=== PATIENT | female | born 1945 | race Caucasian/White ===

== ENCOUNTER → 2017-12-23 10:33 | Outpatient (CLI) | payer MEDICARE, SELFPAY ==
--- NOTE | 2017-12-23 10:55 | XR_ITS ---
XR chest 2V Ordering Physician: Amaya Mcdaniels Patient Age: 72 years: Female HISTORY: ITS.REASON: UPPER BACK PAIN TECHNIQUE: PA and lateral chest COMPARISON :None FINDINGS Lungs well expanded and clear with nothing definitely acute. No previous studies for comparison Heart normal size & mediastinal structures satisfactory.. Chest wall unremarkable. . Aorta is normal contour not appreciably dilated. No lung lesions evident posterior ribs intact T-spine intact. Mild/moderate diffuse anterior hyperostosis involving the mid and lower T-spine study multiple levels. Of this appearance may reflect senile ankylosis or more likely reflection of suggestive developing DISH/ Forestier s disease is with this a flowing ossification anterior longitudinal ligament Of spine. Mild dextrocurvature T-spine also noted. No compression fractures evident at T-spine. Left kitty is upper normal prominence most likely due to a slightly generous pulmonary artery shadow as it turns posteriorly. Any prior films be helpful to confirm stability IMPRESSION: ... ... Lungs clear. Nothing definite acute. Left kitty upper normal prominence, most likely reflecting slightly generous left pulmonary artery. (Any prior films available would be helpful to confirm stability.. If not consider follow-up chest film in 3-4 months to confirm stable) . Anterior hyperostosis throughout the mid and lower [id number] other senile ankylosis or more likely developing hyperostosis/DISH .. Mild gradual dextrocurvature T-spine also noted. No compression fractures T-spine
== END ==
PROVIDERS: PCP Family Medicine; Visit Provider Nurse Practitioner Family
DX: M54.9 Dorsalgia, unspecified (principal)
CPT/HCPCS: 71046; 93005

== ENCOUNTER → 2018-06-24 14:27 | Outpatient (CLI) | payer MEDICARE, OTHER, SELFPAY ==
--- NOTE | 2018-06-24 14:35 | XR_ITS ---
XR chest 2V HISTORY: ITS.REASON: COUGH ORDERING PHYSICIAN: Amaya Mcdaniels PATIENT AGE: 72 years COMPARISON: PA and lateral chest 12/23/2017 FINDINGS: The cardiomediastinal silhouette and pulmonary vascularity are within normal limits. The lungs are clear without infiltrates, suspicious nodules, or pleural effusions. No acute bony abnormalities. There are mild multilevel degenerative changes of the thoracic spine. IMPRESSION: Negative chest, no acute finding
== END ==
PROVIDERS: PCP Family Medicine; Visit Provider Nurse Practitioner Family
DX: R05 Cough (principal)
CPT/HCPCS: 71046

== ENCOUNTER → 2018-08-15 15:00 | Outpatient (CLI) | payer MEDICARE, OTHER, SELFPAY ==
--- NOTE | 2018-08-15 15:11 | XR_ITS ---
EXAM: XR lumbar spine min 4V HISTORY: Low back pain after a fall ITS.REASON: LOW LEFT BACK PAIN WITH SCIATICA ORDERING PHYSICIAN: RIO Kitchen PATIENT AGE: 72 years COMPARISON: None FINDINGS: Normal alignment. All lumbar vertebrae appear intact. There is prominent anterior ossific spurring at the T10-11 level with bony fusion of the osteophytes anteriorly No fracture or dislocation. No lytic or blastic change. There is minor multilevel anterior ossific spurring at levels L2-3, and L3-4. . There are mild hypertrophic facet changes at the L4-5 and L5-S1 levels. There is no pars defect. The SI joints are normal. IMPRESSION: Mild degenerative changes lower thoracic and lower lumbar spine no acute bony pathology seen.
== END ==
PROVIDERS: PCP Family Medicine; Visit Provider Physician Assistant
DX: M54.42 Lumbago with sciatica, left side (principal)
CPT/HCPCS: 72110

== ENCOUNTER 2018-10-30 09:00 | Outpatient (RCR) | payer MEDICARE, OTHER, SELFPAY ==
--- NOTE | 2018-08-20 16:24 | HMH.PTOPEV ---
PT Outpatient Evaluation Rehab PT Outpatient Evaluation Start: 08/20/18 15:44 Freq: Status: Active Protocol: Document 08/20/18 15:45 MADYSON (Rec: 08/20/18 16:24 MADYSON [id number]) Electronically Signed By Everett Vallecillo, PT 08/20/18 15:45 Outpatient Therapy Subjective History Subjective History Patient is a 72 year old female presenting to outpatient PT with reports of L hip pain that radiates to her low back, down the L lateral thigh and wraps around the lateral tibial plateau. Symptoms are of insidious onset starting approximately 3 weeks ago and have progressively gotten worse. Most recent lumbar spine diagnostics mild DDD and osteophytes at L 2/3 and L 3/4 left. Comorbidities include elevated BMI and thyroid disorder. Hx of R knee pain as well. Chief Complaint Pain Gives out/Unstable Paresthesia Weakness Symptom Type Ache Dull Burning Symptoms Relieved By Rest/Positioning Heat Ice OTC Meds Prescription Meds Symptoms Aggravated By Standing Bending/Stooping Physical Activity Twisting Walking Lifting Prior Functional Limitations None Current Functional Limitations Lifting Housework Standing Squatting Recreation Activity Walking Stairs Balance Symptom Description Constant but Variable Level of pain today (0-10) 2 Pain scale - at its best (0-10) 1 Pain scale - at its worst (0-10) 7 Lumbopelvic Eval Posture Thoracic Spine Posture Standing Position Increased Kyphosis Lumbar Spine Posture Standing Position Increased Lordosis Assistive device Assistive Devices None / NA Gait Observation General Gait Pattern Ob
--- NOTE | 2018-10-14 10:58 | HMH.RHREAS ---
Rehab Reassessment Rehab OP Re-assessment Start: 10/14/18 10:49 Freq: Status: Active Protocol: Document 10/14/18 10:50 MADYSON (Rec: 10/14/18 10:58 MADYSON [id number]) Electronically Signed By Everett Vallecillo, PT 10/14/18 10:50 Rehab Re-assessment Subjective Subjective Pt reports 70% improvement. No knee or leg pain, just swelling. Objective Objective Notes AROM WNL Swelling has decreased by 10% about knee. MMT WNL Neuro WNL Assessment Progress Assessment Progressing as Expected Assessment Notes Pt has continued with HEP for ther ex. Rx has mainly consisted of sessions with CLT to address swelling in L knee . She is currently [facility] She would benefit from continuing to see CLT for 2 weeks in order to continue to address swelling. Patient goals met STG's Goals Not Met LTG's Revised Goals NA Plan Plan Continue with current POC Frequency of Therapy 1x/week Duration of therapy 2 weeks. Time and Billing Re-Eval Time 15 Re-Eval Billing Units 1 PHYSICIAN CERTIFICATION: I certify the specified therapy services for Mariola Gutierrez are required, authorized, and reviewed every 30 days.
== END 2018-10-30 09:05 | disposition home or self-care (01) ==
LOC: PT 09:00
PROVIDERS: PCP Family Medicine; Visit Provider Family Medicine
DX: M54.42 Lumbago with sciatica, left side (principal)
CPT/HCPCS: 97010; 97014; 97035; 97110; 97140; 97163; 97164; 97760; G0283

== ENCOUNTER 2019-04-16 08:00 | Outpatient (RCR) | payer MEDICARE, OTHER, SELFPAY ==
--- NOTE | 2019-03-02 09:34 | HMH.PTOPEV ---
PT Outpatient Evaluation Rehab PT Outpatient Evaluation Start: 03/02/19 09:24 Freq: Status: Active Protocol: Document 03/02/19 09:24 DUSTIN (Rec: 03/02/19 09:34 DUSTIN [id number]) Electronically Signed By Daniel Queen, PT 03/02/19 09:24 Outpatient Therapy Subjective History Subjective History Pt reports h/o chronic L sided LBP for ~4-5 months, this episode beginning ~2 weeks ago . Pt reports L sided hip/glut area pain w/intermittent episodes of radicular pain into L groin area. Pt reports recent Xrays have revealed OA in lumbar spine. Chief Complaint Pain Stiff Paresthesia Weakness Symptom Type Ache Throb Sharp Dull Numbness Tingling Symptoms Relieved By Rest/Positioning Ice Prescription Meds Symptoms Aggravated By Sitting Standing Walking Lifting Prior Functional Limitations Lifting Housework Current Functional Limitations Lifting Housework Standing Sitting Walking Symptom Description Constant but Variable Level of pain today (0-10) 1 Pain scale - at its best (0-10) 1 Pain scale - at its worst (0-10) 6 Lumbopelvic Eval Posture Thoracic Spine Posture Standing Position Neutral Lumbar Spine Posture Standing Position Neutral Assistive device Assistive Devices None / NA Gait Observation General Gait Pattern Observation Antalgic Gait Palapation tenderness right paraspinal tenderness Yes: 1/4 buttock tenderness Yes: 2/4 Lumbar/Sacral Palpation Findings Tenderness left lumbar spinal tenderness Yes: 1-2/4 paraspinal tenderness Yes: 2-3/4 buttock tenderness Yes: 3/4 Lumbar/Sacral Palpation Findings Tenderness Accessory Movement L-spine Vertebrae Accessory Movements Central P/A [place] that Elicit Symptoms L5 right left Range of Motion Lumbar Spine Active Flexion Range of 0-70 Motion (degrees)
== END 2019-04-19 08:05 | disposition home or self-care (01) ==
LOC: PT 08:00
PROVIDERS: Visit Provider Family Medicine
DX: M54.42 Lumbago with sciatica, left side (principal)
CPT/HCPCS: 97010; 97014; 97035; 97110; 97163; G0283

== ENCOUNTER → 2019-10-21 09:56 | Outpatient (CLI) | payer MEDICARE, OTHER, SELFPAY ==
--- NOTE | 2019-10-21 10:03 | XR_ITS ---
PROCEDURE: XR WRIST LT MIN 3V CLINICAL INDICATION: TENDONITIS OF LT WRIST Left wrist pain COMPARISON: No exams were available for comparison FINDINGS: Minimal osteoarthritic changes are present at the scapho trapezium joint and 1st metacarpal-carpal joint. No fracture or dislocation. No lytic or blastic change. IMPRESSION: Minimal osteoarthritis Dictated by: Fantasma Samson MD 10/21/2019 18:40 Electronically signed by Fantasma Samson MD in [place] 10/21/2019 18:40
== END ==
PROVIDERS: PCP Family Medicine; Visit Provider Nurse Practitioner Family
DX: M77.8 Other enthesopathies, not elsewhere classified (principal)
CPT/HCPCS: 73110

== ENCOUNTER → 2020-03-17 08:07 | Outpatient (CLI) | payer MEDICARE, OTHER, SELFPAY ==
--- NOTE | 2020-03-17 08:13 | XR_ITS ---
PROCEDURE: XR HIP LT 2-3V W/PELVIS CLINICAL INDICATION: ACUTE LBP WITH LT SCIATICA COMPARISON: No exams were available for comparison FINDINGS: There may minimal osteoarthritic changes of the left hip. Mild hypertrophic changes are present at the greater trochanter. No acute fracture or dislocation. IMPRESSION: Mild degenerative changes Dictated by: Fantasma Samson MD 03/17/2020 13:18 Electronically signed by Fantasma Samson MD in [place] 03/17/2020 13:18
--- NOTE | 2020-03-17 08:13 | XR_ITS ---
PROCEDURE: XR LUMBAR SPINE MIN 4V CLINICAL INDICATION: ACUTE LBP WITH LT SCIATICA COMPARISON: [id number] XR lumbar spine min 4V from 08/15/2018 FINDINGS: There is normal alignment. Mild multilevel degenerative disc disease is present from T12-S1. No acute fracture or dislocation. There are small anterior osteophytes of the vertebral bodies. Mild facet arthritic changes are present at L4-5 and L5-S1. Overall no significant change from 08/15/2018. IMPRESSION: Degenerative changes. No change with no acute finding Dictated by: Fantasma Samson MD 03/17/2020 13:16 Electronically signed by Fantasma Samson MD in [place] 03/17/2020 13:16
[2020-03-17 09:46] LABS: Chloride 102 mmol/L (98-107); Potassium 4.5 mmoL/L (3.5-5.1); Sodium 137 mmol/L (136-145)
[2020-03-17 09:48] LABS: Alanine Aminotransferase 33 U/L (12-78); Aspartate Amino Transferase 27 U/L (14-36); Blood Urea Nitrogen 18 mg/dl (7-17); Estimated Glomerular Filt Rate 62 ml/min (>60); GFR (African American) 74 ML/MIN (>60)
[2020-03-17 09:49] LABS: Albumin Level 3.8 g/dl (3.5-5.0); Albumin/Globulin Ratio 1.4 (1.1-1.8); Alkaline Phosphatase 79 U/L (38-126); Anion Gap 10.5 mEq/L (5-15); Bilirubin,Total 0.7 mg/dl (0.2-1.3); Calcium 9.2 mg/dl (8.4-10.2); Carbon Dioxide 29 mmol/L (22.0-30.0); Chol/HDL Ratio 2.4 (1-3.5); Cholesterol 144 mg/dl (140-200); Globulin 2.8 g/dL (1.3-3.2); Glucose 105 mg/dl (74-100); HDL Cholesterol 61 mg/dl (40-60); Total Protein,Serum 6.6 g/dl (6.3-8.2); Triglycerides 74 mg/dl (30-150); VLDL Cholesterol 15 mg/dL (0-40)
[2020-03-17 10:00] LABS: Direct LDL Cholesterol 84.69 mg/dL (100-129)
[2020-03-17 10:04] LABS: Free T4 (Free Thyroxine) 1.66 ng/dl (0.78-2.19)
[2020-03-17 10:19] LABS: Thyroid Stimulating Hormone 1.23 uIU/mL (0.465-4.68)
== END ==
PROVIDERS: PCP Family Medicine; Visit Provider Physician Assistant
DX: M54.42 Lumbago with sciatica, left side (principal); E03.9 Hypothyroidism, unspecified; I10 Essential (primary) hypertension; Z13.29 Encounter for screening for other suspected endocrine disorder
CPT/HCPCS: 36415; 72110; 73502; 80053; 80061; 84439; 84443

== ENCOUNTER 2020-04-28 09:00 | Outpatient (RCR) | payer MEDICARE, OTHER, SELFPAY ==
--- NOTE | 2020-03-22 10:02 | HMH.PTOPEV ---
PT Outpatient Evaluation Rehab PT Outpatient Evaluation Start: 03/22/20 09:08 Freq: Status: Active Protocol: Document 03/22/20 09:17 GILA (Rec: 03/22/20 10:01 GILA [id number]) Electronically Signed By Mata Waller PT 03/22/20 09:17 Outpatient Therapy Subjective History Subjective History This is the initial Physical Therapy evaluation for Mariola Gutierrez. Pt reports to PT for c/o LBP w/ L side sciatica. Pt reports this bout began ~ 3-4 weeks ago w/ insidious onset. Pt reports she has had multiple bouts of LBP w/ sciatica the last 2 years. Pt reports this bout causes pain intl L lower leg and lateral side of calf w/ c/ o of paresthesia Chief Complaint Pain,Paresthesia,Weakness Symptom Type Ache,Throb,Dull,Numbness, Tingling Symptoms Relieved By Rest/Positioning,Ice Symptoms Aggravated By Standing,Bending/Stooping, Physical Activity,Walking Prior Functional Limitations None Current Functional Limitations Lifting,Housework,Sleeping, Standing,Recreation Activity, Walking Symptom Description Constant but Variable Level of pain today (0-10) 5 Pain scale - at its best (0-10) 4 Pain scale - at its worst (0-10) 8 Lumbopelvic Eval Palapation tenderness left lumbar spinal tenderness Yes paraspinal tenderness Yes buttock tenderness Yes Range of Motion Lumbar Spine Active Flexion Range of 50 Motion (degrees) Lumbar Spine Active Extension Range of 30 Motion (degrees) Left Lumbar Spine Lateral Flexion Active 25 Range of Motion (degrees) Right Lumbar Spine Lateral Flexion 25 Active Range of Motion (degrees) Lumbar Spine ROM Limitations Pain Altered Sensation Left LE Dermatome Level L5 Comment decreased sensation to LT Special Tests Lumbar Spine Screen Positive Sciatic Nerve Tension Test Positive Left Unilateral Straight Leg Raise (Lasegue) Positive Left Test Lumbar Long [place] Distraction Test/Manual Positive Traction Outpatient Therapy Assessment Impairments Problems/Impairmments Palpation Tenderness,Impaired Range of Motion,Impaired Walking,Impaired Standing,
== END 2020-04-28 09:05 | disposition home or self-care (01) ==
LOC: PT 09:00
PROVIDERS: PCP Family Medicine; Visit Provider Physician Assistant
DX: M54.42 Lumbago with sciatica, left side (principal)
CPT/HCPCS: 97010; 97014; 97035; 97110; 97163; 97760; G0283

== ENCOUNTER 2020-05-14 13:05 | Emergency (ER) | payer MEDICARE, OTHER, SELFPAY ==
[2020-05-14 13:07] VITALS: BP 154/72; PULSE 75; RESP 18; TEMP 36.6; O2SAT 99; BMI 45.7
--- NOTE | 2020-05-14 13:22 | HMH.EDUTC ---
[facility] [place] Disposition Clinical Impression: Poison agustina dermatitis Disposition: Home, Self-Care Condition on Discharge: Good Instructions: Summertime Rashes: Poison Agustina, [place], and [place], Poison Agustina, Poison [place], Poison [place], DI for Poison Agustina Allergy, Prednisone Additional Instructions: Take medication as prescribed Start steriods tomorrow 05/15/20 *Follow up with Eye doctor for eye exam if poison agustina continues to spread to eyes immediately *Return if needed Straight to ER if any life threatening symptoms Over the counter Calamine lotion may help to dry the rash Oatmeal bathes may help to soothe and dry rash Benadryl may help with itching Prescriptions: methylPREDNISolone [Medrol 4mg tab] 4 mg PO DIRECTED #21 tab Transmission Status: Received by [facility] Referrals: Attila Coreas MD [Primary Care Provider] - Time of Disposition: 13:31 Medical Decision Making - Wilson Inquiry Pt receiving controlled substance: No Wilson was queried for this patient: No Vital Signs: 05/14/20 13:07 05/14/20 13:47 Temperature 98 F 98 F Temperature Source Oral Oral Pulse Rate 75 Pulse Rate [Radial] 75 Respiratory Rate 18 18 Blood Pressure 154/72 H Blood Pressure [Right Arm] 154/72 H Blood Pressure Mean [Right Arm] 99 Blood Pressure Source Automatic Cuff Blood Pressure Source [Right Arm] Automatic Cuff Blood Pressure Position Sitting Blood Pressure Position [Right Arm] Sitting 02 Sat by Pulse Oximetry 99 Oxygen Delivery Method Room Air Room Air Orders (Tests/Meds): ED MEDICATIONS Discontinued Medications Generic Name Dose Route Start Last Admin Trade Name Radq PRN Reason Stop Dose Admin Methylprednisolone Sodium Succinate 125 mg 05/14/20 13:25 05/14/20 13:29 Solu-Medrol 125mg/2ml Vial IM 05/14/20 13:26 125 mg ONCE ONE Administration - Reevaluation(s) Time: 13:32 Reevaluation #1: Patient state that she has take prednisone and solu medrol before without complications and reactions [facility] [place] HPI - General Stated complaint: Itching around eyes possible poision agustina Time Seen by Provider: 05/14/20 13:22 Mode of Arrival: Ambulatory Source of Information: Patient Limitations: No Limitations Description of Symptoms (Recalled from Triage Doc. by RN): poison agustina HEENT Symptoms (Recalled from RN notes): No Resp Symptoms (Recalled from RN notes): No Skin Symptoms (Recalled from RN notes): Yes MS Symptoms (Recalled from RN notes): No Functional Status (Recalled from RN notes): wnl - History of Present Illness Provider Complaint: Patient states that yesterday she noticed she was starting to break out with poison agustina on her face State that it was under her eyes and on her cheeks States that this morning she woke up and it had spread to her chin and she was having itching in and it looked like it was close to her eye and was worried State that she has had to have steriods before to clear it up - Related Data Previous Rx's Medication Instructions Recorded methylPREDNISolone [Medrol 4mg 4 mg PO DIRECTED #21 tab 05/14/20 tab] Allergies Allergy/AdvReac Type Severity Reaction Status Date / Time Sulfa (Sulfonamide Allergy Verified 05/14/20 13:21 Antibiotics) - Worker's Comp Is this a Worker's Comp case?: No [facility] History - Hepatitis A Screen Drug use history?: No High risk sexual behaviors?: No History of sexually transmitted infection?: No Currently employed?: No Childcare worker?: No Do you have indoor plumbing?: Yes Do you have electricity?: Yes Attestation statement:: This patient has been screened for Hepatitis A risk factors. I have reviewed the patient's past medical history: Yes - Social History Educational Level: Completed High School Alcohol Intake: never Occupational Status: other Housing: house ROS Obtained: Yes All systems reviewed & no additional complaints, Yes Systems reviewed as appropriate & no additional complaints -
[2020-05-14 13:47] VITALS: BP 154/72; PULSE 75; RESP 18; TEMP 36.6; O2SAT 99
== END 2020-05-14 13:48 | disposition home or self-care (01) ==
PROVIDERS: Emergency Provider Nurse Practitioner; PCP Family Medicine
DX: L24.7 Irritant contact dermatitis due to plants, except food (principal)
CPT/HCPCS: G0463; 96372; 99201

== ENCOUNTER → 2020-09-26 12:23 | Outpatient (CLI) | payer MEDICARE, OTHER, SELFPAY | PROVIDERS: PCP Family Medicine; Visit Provider Nurse Practitioner Family | DX: Z03.818 Encounter for observation for suspected exposure to other biological agents ruled out (principal) | CPT/HCPCS: U0003 ==

== ENCOUNTER → 2020-12-20 13:56 | Outpatient (POV) | payer MEDICARE, OTHER, SELFPAY | PROVIDERS: Visit Provider Dermatology | DX: Z00.00 Encounter for general adult medical examination without abnormal findings (principal) ==

== ENCOUNTER → 2021-03-15 08:19 | Outpatient (CLI) | payer MEDICARE, OTHER, SELFPAY ==
[2021-03-15 09:11] LABS: Basophils # 0.1 K/mm3 (0-0.2); Basophils % 0.9 % (0.1-2.0); Eosinophils # 0.4 K/mm3 (0.0-0.4); Eosinophils % 5.2 % (0.1-12.0); Hemoglobin 14.7 g/dL (12.2-16.2); Lymphocytes # 2.2 K/mm3 (0.7-4.5); Lymphocytes % 26.1 % (10-50); Mean Corpuscular HGB Conc 32.6 g/dL (31.8-35.4); Mean Platelet Volume 8.5 fl (7.4-10.4); Monocytes # 0.5 K/mm3 (0.1-1.0); Monocytes % 5.9 % (1.7-9.3); Neutrophils # 5.2 K/mm3 (1.8-7.8); Neutrophils % 61.9 % (37.0-80.0); Platelet Count 262 K/mm3 (142-424); Red Blood Count 5.05 M/mm3 (4.20-5.40); Red Cell Distribution Width 14.2 % (11.5-17.5); White Blood Count 8.4 K/mm3 (4.8-10.8)
[2021-03-15 10:06] LABS: Chloride 101 mmol/L (98-107)
[2021-03-15 10:07] LABS: Potassium 4.6 mmoL/L (3.5-5.1); Sodium 138 mmol/L (136-145)
[2021-03-15 10:09] LABS: Alanine Aminotransferase 28 U/L (12-78); Albumin Level 4.7 g/dl (3.5-5.0); Albumin/Globulin Ratio 1.6 (1.1-1.8); Alkaline Phosphatase 83 U/L (38-126); Anion Gap 13.6 mEq/L (5-15); Aspartate Amino Transferase 35 U/L (14-36); Bilirubin,Total 0.9 mg/dl (0.2-1.3); Blood Urea Nitrogen 19 mg/dl (7-17); Carbon Dioxide 28 mmol/L (22.0-30.0); Cholesterol 196 mg/dl (140-200); Estimated Glomerular Filt Rate 49 ml/min (>60); GFR (African American) 59 ML/MIN (>60); Total Protein,Serum 7.7 g/dl (6.3-8.2); Triglycerides 77 mg/dl (30-150); VLDL Cholesterol 15 mg/dL (0-40)
[2021-03-15 10:10] LABS: Calcium 10.1 mg/dl (8.4-10.2); Chol/HDL Ratio 2.9 (1-3.5); Glucose 114 mg/dl (74-100); HDL Cholesterol 68 mg/dl (40-60)
[2021-03-15 10:21] LABS: Direct LDL Cholesterol 98.69 mg/dL (100-129)
[2021-03-15 10:41] LABS: Thyroid Stimulating Hormone 1.72 uIU/mL (0.465-4.68)
== END ==
PROVIDERS: Visit Provider Nurse Practitioner Family
DX: I10 Essential (primary) hypertension (principal); E03.9 Hypothyroidism, unspecified; Z13.220 Encounter for screening for lipoid disorders; Z91.048 Other nonmedicinal substance allergy status
CPT/HCPCS: 36415; 80053; 80061; 84443; 85025

== ENCOUNTER → 2022-01-01 12:29 | Outpatient (CLI) | payer MEDICARE, SELFPAY ==
--- NOTE | 2022-01-01 12:54 | ECG_ITS ---
APPROVED REPORT Exam: Resting ECG HR:75 bpm ECG Measurements Heart Rate 75 AXES ME 154 P 50 QRSd 89 QRS -10 QT 374 T 32 QTc 403 Conclusion SINUS RHYTHM LOW QRS VOLTAGE IN PRECORDIAL LEADS [QRS DEFLECTION < 1.0 mV IN CHEST LEADS] Old anteroseptal changes BORDERLINE ECG UNCONFIRMED REPORT Electronically signed by : Zohaib Wright MD 01/01/2022 17:26:08
== END ==
PROVIDERS: PCP Family Medicine; Visit Provider Nurse Practitioner Family
DX: M54.9 Dorsalgia, unspecified (principal)
CPT/HCPCS: 93005

== ENCOUNTER → 2022-01-08 11:04 | Outpatient (CLI) | payer MEDICARE, SELFPAY ==
--- NOTE | 2022-01-08 11:07 | XR_ITS ---
FINAL REPORT CLINICAL HISTORY: SINUSITIS, left sided pain since October, congestion and drainage FINDINGS: SINUSES 3 views were obtained. There is no significant mucosal thickening. There are no fluid levels identified. There is no acute fracture. IMPRESSION: No acute process. Reviewed, Interpreted and Dictated by Yoandy Garcia III, MD Transcribed by Josh Mckeon Authenticated by Yoandy Garcia III, MD on 01/08/2022 01:07:36 PM [facility]
== END ==
PROVIDERS: PCP Family Medicine; Visit Provider Nurse Practitioner Family
DX: J32.9 Chronic sinusitis, unspecified (principal)
CPT/HCPCS: 70220

== ENCOUNTER → 2022-01-22 09:56 | Outpatient (CLI) | payer MEDICARE, SELFPAY | PROVIDERS: PCP Family Medicine; Visit Provider Internal Medicine Cardiovascular Disease | DX: I20.8 Other forms of angina pectoris (principal); R00.0 Tachycardia, unspecified; R42 Dizziness and giddiness; R94.31 Abnormal electrocardiogram [ECG] [EKG] | CPT/HCPCS: 93270 ==

== ENCOUNTER → 2022-01-24 06:52 | Outpatient (CLI) | payer SELFPAY ==
--- NOTE | 2022-01-24 07:01 | CT_ITS ---
FINAL REPORT CLINICAL HISTORY: . FINDINGS: CT CORONARY CALCIUM SCORE W/O TECHNIQUE: Thin-section axial images were obtained through the heart and coronary arteries per CT coronary calcium score protocol. This study was performed with techniques to keep radiation doses as low as reasonably achievable (ALARA). Individualized dose reduction techniques using automated exposure control or adjustment of mA and/or kV according to the patient's size were employed. FINDINGS: No coronary artery calcification is identified. This gives a coronary artery calcium score of 0 based on the Agatston scale. This coronary artery calcium score places the patient within the 0 percentile based on age and gender. The heart size is normal. There is no pleural or pericardial effusion. Limited evaluation of the lungs reveal no suspicious nodule. IMPRESSION: Coronary calcium score of 0. Reviewed, Interpreted and Dictated by Power Doe MD Transcribed by Amaya Reagna Authenticated by Power Doe MD on 01/24/2022 04:19:39 PM [facility]
== END ==
PROVIDERS: PCP Family Medicine; Visit Provider Internal Medicine Cardiovascular Disease
DX: I20.8 Other forms of angina pectoris (principal); R00.0 Tachycardia, unspecified; R42 Dizziness and giddiness; R94.31 Abnormal electrocardiogram [ECG] [EKG]
CPT/HCPCS: 75571

== ENCOUNTER → 2022-02-20 14:15 | Outpatient (CLI) | payer MEDICARE, SELFPAY ==
--- NOTE | 2022-02-20 14:17 | CA_ITS ---
APPROVED REPORT EXAM: Comprehensive 2D, Doppler, and color-flow Echocardiogram Foot Cutter: Isabell Chambers RT(R) Ht: 5 ft 2 in Wt: 257lbs BSA: 2.13 BP: 152/82 mmHg Indications: angina, CUELLAR, obesity, family history of HD, Abn EKG, tachycardia, dizziness 2D Dimensions LVOT 2.00 cm (M/F) 1.5-2.5 LVEF (Redd's) 62.30 % F: 54 - 74 LV Volume 90.80 mL F: 46 - 106 LV Volume Index 42.83 mL/m2 F: 29 - 61 M-Mode Dimensions RVDd 2.98 cm (0.9-2.6) LA Diam 2.78 cm (1.9-4.0) LVDd 3.30 cm (3.5-5.7) Ao Diam 3.39 cm (2.0-3.7) LVDs 2.58 cm (3.5-5.7) IVSd 0.93 cm (0.6-1.1) PWd 0.85 cm (0.6-1.1) EF (Teich) 45.40% FS 21.80% EDV (Teich) 44.10 mL ESV (Teich) 24.10 mL LV Diastology E Decel Time 183.00 (160-240 msec) E/A Ratio 1.0 MED E' 10.10 (< 7 cm/sec) E'/MED E' Ratio 7.05 (>14) LAT E' 11.80 (<10 cm/sec) E/LAT E' Ratio 6.03 (>14) Aortic Valve AI PHT 709.00 ms Mitral Valve MV E Max Alessandro. 71.00 (40-130 cm/s) MV A Velocity 71.00 (40-130 cm/s) E/A Ratio 1.00 MV Decel. Time 183.00 (160-240 ms) MV PHT 54.00 ms Left Ventricle Left atrium is mildly enlarged, left ventricle is normal size, mild concentric left ventricular hypertrophy, Left ventricle is mildly enlarged, left ventricle is normal size, mild concentric left ventricular hypertrophy, visually estimated ejection fraction 55% with no regional wall motion abnormality, diastolic parameters are inconclusive. Right Ventricle Right atrium and right ventricle mildly enlarged with normal contractility. Aortic Valve Aortic valve is thickened and calcified without aortic stenosis, there is mild aortic insufficiency. Mitral Valve Mitral valve is grossly normal, there is trace mitral regurgitation. Tricuspid Valve Tricuspid grossly normal, there is trace tricuspid regurgitation, tricuspid regurgitation jet velocity is inadequate for calculation of the right ventricular systolic pressure. Pulmonic Valve Pulmonic valve is poorly visualized. Great Vessels Aortic root is normal size. Inferior vena cava is poorly visualized. Pericardium No significant pericardial effusion. Conclusion 1. Mild biatrial enlargement, normal left ventricular size, mild concentric left ventricular hypertrophy, visually estimated ejection fraction 55% with no regional wall motion abnormality, diastolic parameters are inconclusive. 2. Thickened and calcified aortic valve without aortic stenosis, there is mild aortic insufficiency. 3. Trace mitral and tricuspid regurgitation. 4. No significant pericardial effusion. 5. Inferior vena cava is poorly visualized. Electronically signed by : William Feliciano MD 02/20/2022 21:19:53
== END ==
PROVIDERS: PCP Family Medicine; Visit Provider Internal Medicine Cardiovascular Disease
DX: I20.8 Other forms of angina pectoris (principal); R00.0 Tachycardia, unspecified; R42 Dizziness and giddiness; R94.31 Abnormal electrocardiogram [ECG] [EKG]
CPT/HCPCS: 93306

== ENCOUNTER → 2022-03-22 08:51 | Outpatient (CLI) | payer MEDICARE, SELFPAY ==
--- NOTE | 2022-03-22 08:55 | XR_ITS ---
FINAL REPORT TECHNIQUE: Bone mineral density was calculated of the lumbar spine and hip. CLINICAL HISTORY: post menopausal FINDINGS: Using L1-4, the bone mineral density of the spine is 1.011 g/cm2, corresponding to T-score of -0.3 which is normal but may be falsely elevated secondary to hypertrophic changes. Using the left hip, the bone mineral density of the femoral neck is 0.623 g/cm2, corresponding to a T-score of -2.0 which is osteopenic. Using the right hip, the bone mineral density of the femoral neck is 0.635 g/cm2, corresponding to a T-score of -1.9 which is osteopenic. FRAX 10 year fracture risk is 11% for major osteoporotic fracture. NOTE: T-score: Standard deviation compared with peak bone mass of young adult mean. *Following the recommendations of the International Society of Bone densitometry, classification of hip BMD is based on the lower of two T-scores; total hip or femoral neck. IMPRESSION: Diminished bone mineral density of the bilateral hips consistent with osteopenia. Lumbar spine bone mineral density is normal but may be falsely elevated secondary to hypertrophic changes. Reviewed, Interpreted and Dictated by Yoandy Garcia III, MD Transcribed by Junie Gonzalez Authenticated by Yoandy Garcia III, MD on 03/22/2022 10:54:41 AM [facility]
== END ==
PROVIDERS: PCP Family Medicine; Visit Provider Nurse Practitioner Family
DX: Z78.0 Asymptomatic menopausal state (principal)
CPT/HCPCS: 77080

== ENCOUNTER → 2022-11-21 09:55 | Outpatient (CLI) | payer MEDICARE, SELFPAY ==
--- NOTE | 2022-11-21 10:10 | XR_ITS ---
FINAL REPORT CLINICAL HISTORY: Right anterior knee pain & stiffness. Burning. Swelling. FINDINGS: Three views of the right knee reveal no evidence of fracture or dislocation. The bony alignment is normal. There are mild degenerative changes. There is no evidence of joint effusion. No localized soft tissue abnormality is identified. IMPRESSION: No acute abnormality identified. Reviewed, Interpreted and Dictated by Yoandy Garcia III, MD Transcribed by Josh Mckeon Authenticated and [facility]
== END ==
PROVIDERS: PCP Family Medicine; Visit Provider Physician Assistant Surgical
DX: M25.561 Pain in right knee (principal)
CPT/HCPCS: 73562

== ENCOUNTER 2023-02-26 09:00 | Outpatient (RCR) | payer MEDICARE, SELFPAY ==
--- NOTE | 2022-12-26 08:32 | HMH.PTOPWND ---
Rehab Outpt Wound Evaluation Rehab OP Wound Evaluation Start: 12/26/22 08:07 Freq: Status: Active Protocol: Document 12/26/22 08:23 TORI (Rec: 12/26/22 08:32 PHORVELASQUEZ [id number]) E-signed By Mehran Peterson, PT Subjective/History History History This is the initial PT eval for Mariola Gutierrez 77 yowf who presents with c/o R knee pain and swelling x ~2-3 mos with insidious onset of symptoms. X -rays taken show no acute abnormalities and mild degeneration only. She reports pain is worse with activity and swelling increases with dependent positioning. She has palpation tenderness that persists in the R pes anserine bursae area, but she does reports the injection she received at last Ortho visit did reduce her symptoms. She reports PMH of x 2. Subjective Subjective Currently pain is 4/10 in the R knee. 2/4 TTP at R pes anserine bursae. No pitting edema noted, but mild 'spongy' edema throughout the medial and superior R knee area. No numbness or tingling noted in the R LE. Lymphedema Eval Classification of Lymphedema Secondary Lymphedema Yes Stemmer's sign Stemmer's Sign no Stage of Lymphedema Lymphedema stages Stage 0 (subjective c/o heaviness and aching) Skin Changes Dry Skin Yes Skin Folds Yes Other Changes Yes Pain Scale Pain Scale (0-10) 4 Affected Extremities Areas Affected by Lymphedema/Edema Right Lower Extremity Manual Lymphatic Drainage Treatment Area MLD Treatment Area Right Lower Extremity Wound Problems/Impairments Impairments Problems/Impairmments Palpation Tenderness,Impaired Endurance,Impaired Walking, Impaired Standing,Impaired Recreational Activities, Increased Edema,Lymphedema Present,Subjective C/O Pain, Impaired Self Care/Self Management Prognosis Rehab Potential
--- NOTE | 2023-01-21 16:38 | HMH.RHREAS ---
Rehab Reassessment Rehab OP Re-assessment Start: 01/21/23 16:16 Freq: Status: Active Protocol: Document 01/21/23 16:25 PHOVINCE (Rec: 01/21/23 16:38 PHORVELASQUEZ [id number]) E-signed By Mehran Peterson, PT Rehab Re-assessment Subjective Subjective Pt presents with less pain overall, 3/10, in R LE. Feels much better when wearing compression stocking. Objective Objective Notes Circumferential measurements: R LE total is 226.4 cm which is -19.4 cm since initial eval . No 'spongy' edema noted this date, 'doughy' edema remains on medial R thigh. / tenderness to palpation noted in R knee this date. Assessment Progress Assessment Progressing as Expected Assessment Notes Pt has shown significant improvements in all edema at this time with large reduction in total circumferential measurements. She also reported less pain and significant reduction in palpation tenderness. Continues to need MLD to furher decrease edema. Patient goals met ST,2,[address] LT,2,3,4,5,6,7 Revised Goals none Plan Plan Continue per initial POC Frequency of Therapy 2 x/wk Duration of therapy 4 wks Time and Billing Re-Eval Time 14 Re-Eval Billing Units 1 PHYSICIAN CERTIFICATION: I certify the specified therapy services for Mariola Gutierrez are required, authorized, and reviewed every 30 days.
--- NOTE | 2023-02-19 09:51 | HMH.RHREAS ---
Rehab Reassessment Rehab OP Re-assessment Start: 01/21/23 16:16 Freq: Status: Active Protocol: Document 02/19/23 09:43 TORI (Rec: 02/19/23 09:50 PHOVINCE [id number]) E-signed By Mehran Peterson, PT Rehab Re-assessment Subjective Subjective Pt reports she has 4/10 pain in the R knee today. Its just burning. However, when asked about pain improvement since initial eval she states, Oh, it's nothign like it was it doesn't really hurt at all now like it did. Objective Objective Notes Circumferential measurements: R LE total is 224.4 cm which is -21.4 cm since initial eval . (L LE non-treatment leg total 232.8 cm.) No 'spongy' edema and minimal 'doughy' edema noted to R knee this date. 0/4 tenderness to palpation noted in R knee this date. Assessment Progress Assessment Progressing as Expected Assessment Notes Pt has continued to show significant overall improvement in R LE edema at this time. She appears to be beginning to reach a plateau with her edema reduction overall and has significantly less palpation tenderness noted. She continues to need skilled therapy treatment to fully reach all goals prior to d/c. Patient goals met ST,2,4 LT,5,[address] LT,3,4,6 Revised Goals none Plan Plan Continue per initial POC Frequency of Therapy 1 x/wk Duration of therapy 4 wks Time and Billing Re-Eval Time 16 Re-Eval Billing Units 1 PHYSICIAN CERTIFICATION: I certify the specified therapy services for Mariola Gutierrez are required, authorized, and reviewed every 30 days.
== END 2023-02-26 09:05 | disposition home or self-care (01) ==
LOC: PT 09:00
PROVIDERS: PCP Family Medicine; Visit Provider Orthopaedic Surgery
DX: M25.561 Pain in right knee (principal); M25.461 Effusion, right knee
CPT/HCPCS: 97140; 97162; 97164; 97760

== ENCOUNTER 2024-04-06 09:18 | Outpatient (CLI) | payer MEDICARE, SELFPAY ==
[2024-04-06 09:44] LABS: Basophils # 0.1 K/mm3 (0-0.2); Basophils % 0.8 % (0.1-2.0); Eosinophils # 0.1 K/mm3 (0.0-0.4); Eosinophils % 0.7 % (0.1-12.0); Hematocrit 48.2 % (37.0-47.0); Hemoglobin 15.4 g/dL (12.2-16.2); Lymphocytes # 2.6 K/mm3 (0.7-4.5); Lymphocytes % 18.9 % (10-50); Mean Corpuscular HGB Conc 31.9 g/dL (31.8-35.4); Mean Platelet Volume 8.8 fl (7.4-10.4); Monocytes # 1.1 K/mm3 (0.1-1.0); Monocytes % 7.5 % (1.7-9.3); Neutrophils # 10.1 K/mm3 (1.8-7.8); Neutrophils % 72.1 % (37.0-80.0); Platelet Count 307 K/mm3 (142-424); Red Blood Count 5.13 M/mm3 (4.20-5.40); Red Cell Distribution Width 14.2 % (11.5-17.5); White Blood Count 13.9 K/mm3 (4.8-10.8)
[2024-04-06 10:14] LABS: Alanine Aminotransferase 24 U/L (12-78); Albumin Level 4.2 g/dl (3.5-5.0); Alkaline Phosphatase 70 U/L (38-126); Anion Gap 10.1 mEq/L (5-15); Aspartate Amino Transferase 26 U/L (14-36); Bilirubin,Direct 0.2 mg/dl (0.0-0.4); Bilirubin,Indirect 0.6 mg/dL (0.0-0.9); Bilirubin,Total 0.8 mg/dl (0.2-1.3); Bilirubin,Unconjugated 0.6 mg/dL (0.0-1.1); Blood Urea Nitrogen 28 mg/dl (7-17); Calcium 9.6 mg/dl (8.4-10.2); Carbon Dioxide 33 mmol/L (22.0-30.0); Chloride 101 mmol/L (98-107); Chol/HDL Ratio 2.1 (1-3.5); Cholesterol 188 mg/dl (140-200); Estimated Glomerular Filt Rate 48 ml/min (>60); GFR (African American) 58 ML/MIN (>60); Glucose 101 mg/dl (74-100); HDL Cholesterol 91 mg/dl (40-60); Potassium 4.1 mmoL/L (3.5-5.1); Sodium 140 mmol/L (136-145); Total Protein,Serum 7.3 g/dl (6.3-8.2); Triglycerides 75 mg/dl (30-150); VLDL Cholesterol 15 mg/dL (0-40)
[2024-04-06 10:25] LABS: Direct LDL Cholesterol 89.13 mg/dL (100-129)
[2024-04-06 10:31] LABS: Free T4 (Free Thyroxine) 1.61 ng/dl (0.78-2.19)
[2024-04-06 10:46] LABS: Thyroid Stimulating Hormone 1.02 uIU/mL (0.465-4.68)
== END 2024-04-06 23:59 | disposition home or self-care (01) ==
LOC: LAB 09:19
PROVIDERS: PCP Family Medicine; Visit Provider Nurse Practitioner Family
DX: R00.0 Tachycardia, unspecified (principal); I10 Essential (primary) hypertension; R60.9 Edema, unspecified; R94.31 Abnormal electrocardiogram [ECG] [EKG]; I11.9 Hypertensive heart disease without heart failure
CPT/HCPCS: 36415; 80048; 80061; 80076; 84439; 84443; 85025

== ENCOUNTER 2024-04-16 11:31 | Outpatient (CLI) | payer MEDICARE, SELFPAY ==
--- NOTE | 2024-04-16 11:36 | XR_ITS ---
FINAL REPORT CLINICAL HISTORY: TENDINITIS OF RT FOOT FINDINGS: RIGHT FOOT 3 views of the right foot were obtained. There is no acute fracture or dislocation. Calcaneal spurs are noted. There are mild degenerative changes. Soft tissues are unremarkable. IMPRESSION: No acute bony abnormality. Reviewed, Interpreted and Dictated by Yoandy Garcia III, MD Transcribed by Junie Gonzalez Authenticated and . [facility]
== END 2024-04-16 23:59 | disposition home or self-care (01) ==
LOC: RAD 11:33
PROVIDERS: PCP Physician Assistant; Visit Provider Physician Assistant
DX: M79.671 Pain in right foot (principal); M77.51 Other enthesopathy of right foot and ankle
CPT/HCPCS: 73630

== ENCOUNTER 2024-04-19 14:54 | Emergency (ER) | payer MEDICARE, SELFPAY ==
[2024-04-19 15:20] VITALS: BP 152/79; PULSE 87; RESP 20; TEMP 36.8; O2SAT 95; BMI 45.0
--- NOTE | 2024-04-19 15:22 | EXP.UTC ---
Discharge Plan Disposition Patient Disposition: Home, Self-Care Condition: Good Prescriptions Prescriptions: New doxycycline hyclate 100 mg capsule 100 mg PO Q12 10 Days Qty: 20 0RF No Action levothyroxine 112 mcg capsule 112 mcg PO DAILY hydrochlorothiazide 12.5 mg capsule 12.5 mg PO DAILY Patient Comments: TAKE 1 CAPSULE BY MOUTH ONCE DAILY IN THE MORNING meloxicam 15 mg tablet 15 mg PO DAILY Qty: 30 2RF aspirin 81 mg tablet,delayed release (DR/EC) 81 mg PO DAILY fexofenadine 60 mg capsule 60 mg PO Q12H Referrals Follow up/Referrals: Amaya Mcdaniels APRN [Primary Care Provider] - See instructions Activity Restrictions/Add. Instructions Additional Instructions/Restrictions: Rest the extremity, apply ice for 15 minutes as tolerated three or four times per day, Wear the evangelist wrap for compression, Elevate the extremity as tolerated while you are resting. Take tylenol or ibuprofen (if you can take this) for pain or fever. Take the medications as directed. Follow up with your regular doctor. GO TO THE ER FOR ANY WORSENING SYMPTOMS Clinical Impressions Clinical Impression: Cellulitis of right leg, Cellulitis of right foot Instructions Patient Instructions: Cellulitis, Doxycycline Discharge ED Provider: Jl Cheema [facility] General Stated complaint: RT leg redness swelling Time Seen by Provider: 04/19/24 15:22 History of Present Illness Provider Complaint: She states that for the past 1 week she has had right foot redness. She denies any injury or exposure to allergens. She was prescribed steroids by her pcp. She states these have not helped. She denies any fever/chills. Related Data Home Medications Medication Instructions Recorded Confirmed levothyroxine 112 mcg capsule 112 mcg PO DAILY 06/27/21 04/19/24 aspirin 81 mg tablet,delayed 81 mg PO DAILY 01/19/22 04/19/24 release fexofenadine 60 mg capsule 60 mg PO Q12H 01/19/22 04/19/24 hydrochlorothiazide 12.5 mg capsule 12.5 mg PO DAILY 04/06/24 04/19/24 Previous Rx's Medication Instructions Recorded meloxicam 15 mg tablet 15 mg PO DAILY #30 tabs 11/14/23 doxycycline hyclate 100 mg capsule 100 mg PO Q12 10 days #20 caps 04/19/24 Allergies Allergy/AdvReac Type Severity Reaction Status Date / Time Sulfa (Sulfonamide Allergy Verified 04/06/24 08:44 Antibiotics) [facility] Disclaimer: The information contained in this section may have been updated after the patient was seen, as this information can be updated by other users. Medical History (Updated 04/19/24 @ 16:11 by Jl Cheema APRN) Hypertension Lymphedema Acid reflux disease Depression Peripheral vascular disease Diverticulosis Surgical History H/O: hysterectomy History of lumpectomy Family History Other Diabetes Hypertension Osteoarthritis Thyroid disorder Social History Smoking Status: Never smoker alcohol intake: never substance use type: denies use current occupational status: retired Travel in the last 8 weeks: Inside the [place] household members: spouse housing: house ROS Obtained: Yes All systems reviewed & no additional complaints except as documented Constitutional Constitutional: Denies chills and Denies fever(s) Eyes Eyes: Denies eye discharge ENT Ears, Nose, Mouth, and Throat: Denies dizziness, Denies otalgia and Denies sore throat Cardiovascular Cardiovascular: Denies chest pain Respiratory Respiratory: Denies shortness of breath, Denies chest congestion, Denies cough, Denies stridor and Denies wheezing Gastrointestinal Gastrointestingal: Denies nausea or vomiting Musculoskeletal Musculoskeletal: Reports system reviewed and no additional complaints, except as documented and Denies arthralgias Integumentary/Breasts Skin/Breast: Reports as per HPI, Reports redness and Reports rash Neurologic Neurologic: Denies dizziness and Denies paresthesias Allergic/Immunologic Allergic/Immunologic: Denies wheezing Physical Exam General General appearance: alert and in no apparent distress Head Head exam: atraumatic, normocephalic and normal inspection Eye Eye exam: Present normal appearance, PERRL and EOMI ENT ENT exam: Present normal exam, normal oropharynx, mucous membranes moist, TM's normal bilaterally and normal external ear exam Neck Neck exam: Present normal inspection, full ROM and trachea midline; Absent meningismus or lymphadenopathy Chest Chest inspection: Present normal inspection and symmetric chest wall rise; Absent tenderness Respiratory Respiratory exam: Present normal lung sounds bilaterally; Absent respiratory distress Cardiovascular Cardiovascular exam: Present regular rate and normal rhythm; Absent JVD Abdominal Exam Abdominal exam: Present soft and normal bowel sounds; Absent distention, tenderness or guarding Extremities Exam Extremities exam: Present normal capillary refill; Absent calf tenderness Expanded Lower Extremity Exam Right: Lower leg exam: Present Achilles tendon intact; Absent Homans' sign Ankle exam: Present full ROM, tenderness and erythema; Absent swelling, abrasion, laceration, ecchymosis, deformity, crepitus, dislocation, tenderness over talofibular lig or anterior draw sign Foot/toe exam: Present full ROM and ecchymosis; Absent tenderness or swelling Neurovascular/Tendon exam: Present normal capillary refill, normal 2-point discrimination and normal fine/light touch; Absent pulse deficit, motor deficit, sensory deficit, tendon deficit, extremity cold to touch or pallor Gait: observed and normal Back Exam Back exam: Present normal inspection; Absent tenderness Neurological Exam Neurological exam: Present alert and oriented X3 Psychiatric Psychiatric exam: Present normal affect and normal mood Skin Skin exam: Present erythema (erythema of the top of her foot and ankle is noted. no wounds, no induration. ) Lymphatic Lymphatic Findings: no adenopathy Medical Decision Making Medical Records Medical records reviewed: No I reviewed the patient's medical records. [place] Inquiry Pt receiving controlled substance: No
[2024-04-19] MEDS: cefTRIAXone 1GM VIAL 1 GM IM (16:04)
[2024-04-19] MEDS: LIDOCAINE 1% 5ML PF VIAL IM (16:04)
[2024-04-19 16:09] VITALS: BP 152/79; PULSE 87; RESP 20; TEMP 36.8; O2SAT 95
== END 2024-04-19 16:17 | disposition home or self-care (01) ==
PROVIDERS: Emergency Provider Nurse Practitioner Family; PCP Nurse Practitioner Family
DX: L03.115 Cellulitis of right lower limb (principal)
CPT/HCPCS: 96372; 99204; 99212; G0463; J0696

== ENCOUNTER 2024-05-04 12:18 | Outpatient (CLI) | payer MEDICARE, SELFPAY ==
[2024-05-04 12:49] LABS: Basophils # 0.1 K/mm3 (0-0.2); Basophils % 1.2 % (0.1-2.0); Eosinophils # 0.3 K/mm3 (0.0-0.4); Eosinophils % 3.5 % (0.1-12.0); Hematocrit 42.5 % (37.0-47.0); Hemoglobin 13.6 g/dL (12.2-16.2); Lymphocytes # 2.4 K/mm3 (0.7-4.5); Lymphocytes % 28.9 % (10-50); Mean Corpuscular HGB Conc 32.1 g/dL (31.8-35.4); Mean Corpuscular Hemoglobin 29.6 pg (27.0-31.2); Mean Corpuscular Volume 92.4 fl (81-99); Monocytes # 0.7 K/mm3 (0.1-1.0); Neutrophils # 4.9 K/mm3 (1.8-7.8); Neutrophils % 58.4 % (37.0-80.0); Platelet Count 269 K/mm3 (142-424); Red Cell Distribution Width 14.4 % (11.5-17.5); White Blood Count 8.4 K/mm3 (4.8-10.8)
[2024-05-04 13:13] LABS: Erythrocyte Sedimentation Rate 24 mm/hr (0-30)
[2024-05-04 13:40] LABS: Alanine Aminotransferase 26 U/L (12-78); Albumin Level 3.9 g/dl (3.5-5.0); Albumin/Globulin Ratio 1.2 (1.1-1.8); Alkaline Phosphatase 62 U/L (38-126); Anion Gap 9.8 mEq/L (5-15); Aspartate Amino Transferase 35 U/L (14-36); Bilirubin,Total 0.6 mg/dl (0.2-1.3); Blood Urea Nitrogen 18 mg/dl (7-17); Calcium 9.3 mg/dl (8.4-10.2); Carbon Dioxide 33 mmol/L (22.0-30.0); Chloride 100 mmol/L (98-107); Estimated Glomerular Filt Rate 54 ml/min (>60); GFR (African American) 65 ML/MIN (>60); Globulin 3.2 g/dL (1.3-3.2); Glucose 107 mg/dl (74-100); Potassium 3.8 mmoL/L (3.5-5.1); Sodium 139 mmol/L (136-145); Total Protein,Serum 7.1 g/dl (6.3-8.2)
[2024-05-04 13:46] LABS: C-Reactive Protein 6.4 mg/L (0-4)
== END 2024-05-04 23:59 | disposition home or self-care (01) ==
LOC: LAB 12:19
PROVIDERS: PCP Family Medicine; Visit Provider Podiatrist
DX: M79.671 Pain in right foot (principal); L03.115 Cellulitis of right lower limb; R60.9 Edema, unspecified
CPT/HCPCS: 36415; 80053; 85025; 85651; 86140

== ENCOUNTER 2024-06-09 14:29 | Outpatient (CLI) | payer MEDICARE, SELFPAY ==
--- NOTE | 2024-06-09 14:36 | XR_ITS ---
FINAL REPORT CLINICAL HISTORY: Lt Knee Pain FINDINGS: Left knee Three views were obtained. There is no acute fracture or dislocation. There are moderate degenerative changes. No soft tissue abnormality is identified. IMPRESSION: Moderate degenerative changes. Reviewed, Interpreted and Dictated by Yoandy Garcia III, MD Transcribed by Amaya Reagan Authenticated and [facility]
== END 2024-06-09 23:59 | disposition home or self-care (01) ==
LOC: RAD 14:31
PROVIDERS: PCP Family Medicine; Visit Provider Orthopaedic Surgery
DX: M25.562 Pain in left knee (principal)
CPT/HCPCS: 73562

== ENCOUNTER 2024-07-09 10:00 | Outpatient (RCR) | payer MEDICARE, SELFPAY ==
--- NOTE | 2024-06-02 15:52 | HMH.PTOPWND ---
Rehab Outpt Wound Evaluation Rehab OP Wound Evaluation Start: 06/02/24 15:36 Freq: Status: Active Protocol: Document 06/02/24 15:37 TORI (Rec: 06/02/24 15:52 PHOVINCE [id number]) E-signed By Mehran Peterson, PT Subjective/History History History This is the initial PT eval for Mariola Gutierrez, 78 yowf who presents with c/o B LE edema, R worse than L at this time, x ~ 1-2 mos this episode with insidious onset of symptoms. She reports R ankle and lower leg were acutely more swollen, but not as bad now. She underwent a round of oral abx for possible cellulitis, but reports edema remained until podiatry placed an unna boot. She reports no pain at this time in her lower legs, but increased pain in B knees due to OA. Subjective Subjective Currently pain is 0/10. Moderate blanchable erythema noted to B lower legs. No pitting edema at this time, but mild fibrotic edema noted to B lower legs. New diagnosis of cancer in past 12 No months? Lymphedema Eval Classification of Lymphedema Secondary Lymphedema Yes Stemmer's sign Stemmer's Sign yes Stage of Lymphedema Lymphedema stages Stage II (Pitting edema, increased fibrosis w/ decreased pitting) Skin Changes Dry Skin Yes Skin Folds Yes Redness Yes Discoloration of Skin Yes Other Changes Yes Pain Scale Pain Scale (0-10) 0 Affected Extremities Areas Affected by Lymphedema/Edema Right Lower Extremity,Left Lower Extremity Lower Extremity Measurements Right MTP Measurement (cm) 23.1 Heel Measurement (cm) 32.5 10 cm Proximal to Lateral Malleoli 33.7 Measurement (cm) 20 cm Proximal to Lateral Malleoli 46.3 Measurement (cm) 30 cm Proximal to Lateral Malleoli 55.0 Measurement (cm) 40 cm Proximal to Lateral Malleoli 0 Measurement (cm) 50 cm Proximal to Lateral Malleoli 0 Measurement (cm) 60 cm Proximal to Lateral Malleoli 0 Measurement (cm) Lower Extremity Measurement Total (cm) 190.6 Left MTP Measurement (cm) 22.1 Heel Measurement (cm) 32.6 10 cm Proximal to Lateral Malleoli 35.5 Measurement (cm) 20 cm Proximal to Lateral Malleoli 51.5 Measurement (cm) 30 cm Proximal to Lateral Malleoli 57.0 Measurement (cm) 40 cm Proximal to Lateral Malleoli 0 Measurement (cm) 50 cm Proximal to Lateral Malleoli 0 Measurement (cm) 60 cm Proximal to Lateral Malleoli 0 Measurement (cm) Lower Extremity Measurement Total (cm) 198.7 Manual Lymphatic Drainage Treatment Area MLD Treatment Area Right Lower Extremity,Left Lower Extremity Wound Problems/Impairments Impairments Problems/Impairmments Palpation Tenderness,Impaired Walking,Impaired Household Care,Impaired Recreational Activities,Increased Edema, Lymphedema Present,Impaired Self Care/Self Management Prognosis Rehab Potential Good Comment Skilled therapy is needed to reduce overall lymphedema and aid pt return to PLOF with all ADLs. Clinical Impression Consistent with Diagnosis Yes Consistent with Lymphedema Short Term Goals Number of Weeks 2 Decreased Palpation Tenderness Yes: 1/4 B lower legs Decrease Edema Yes: no pitting edema B LE Patient to Understand Lymphedema Yes Treatment and Exercises Decrease Girth Measurments by (cm) Yes: B LE total by 5 cm ea Alf Goals Number of Weeks 4 Decreased Palpation Tenderness Yes: 0/4 B lower legs Decrease Lymphedema Yes: No fibrotic edema B lower legs Patient to be Ind w/ HEP Yes Patient to be Ind w/ [place] Yes Compression Garments Patient to Adhere Lymphedema Precautions Yes Decrease Girth Measurments by (cm) Yes: B LE total by 15 cm ea Outpatient Therapy Plan of Care Treatment Plan May Include Therapeutic Exercise Including Home Yes Exercise Program Manual Therapy Techniques Yes Neuromuscular Re-education Yes Therapeutic Activities to Return to Yes Previous Functional/Work Level ADL/Self Care Education Yes Orthotics/Bracing/Splinting Yes Manual Lymphatic Drainage Yes Eval/Re-Eval Yes Frequency Times per week 2 Duration Number of Weeks 4 Addendums This patient is a candidate for social No or vocational rehab? Patient/Guardian verbally acknowledges Yes understanding of treatment program and consents to further treatment? Patient/Guardian verbally acknowledges Yes understanding of diagnosis, prognosis and goals for treatment? Eval Complexity PT Charges 36565 - High Complexity PHYSICIAN CERTIFICATION: I certify the specified therapy services for Mariola Gutierrez are required, authorized, and reviewed every 30 days.
--- NOTE | 2024-07-02 15:57 | HMH.RHREAS ---
Rehab Reassessment Rehab OP Re-assessment Start: 06/02/24 15:36 Freq: Status: Active Protocol: Document 07/02/24 15:41 TORI (Rec: 07/02/24 15:56 PHOVINCE [id number]) E-signed By Mehran Peterson, PT Rehab Re-assessment Subjective Subjective Pt reports I don't have any pain anymore and it doesn't hurt to touch now. She does feel her ambulation has improved. Objective Objective Notes Circumferential Measurements: R LE total is 171.4 cm which is -19.2 cm L LE total is 179.3 cm which is -19.4 cm TTP: 0/4 Pain: 0/10 in B LE. Edema: No pitting edema, mild fibrotic edema B LE. Assessment Progress Assessment Progressing as Expected Assessment Notes Pt has shown significant improvement in B LE edema overall with much less pain and tenderness to palpation. She needs to continue to need skilled therapy to return to prior level of function. Patient goals met ST/4 LT/6 Plan Plan Continue per initial POC. Frequency of Therapy 1-2 x/wk Duration of therapy 2 wks Time and Billing Re-Eval Time 11 Re-Eval Billing Units 1 PHYSICIAN CERTIFICATION: I certify the specified therapy services for Mariola Gutierrez are required, authorized, and reviewed every 30 days.
== END 2024-07-09 10:05 | disposition home or self-care (01) ==
LOC: PT 10:00
PROVIDERS: Visit Provider Podiatrist
DX: I83.893 Varicose veins of bilateral lower extremities with other complications (principal); I77.6 Arteritis, unspecified
CPT/HCPCS: 97140; 97163; 97164

== ENCOUNTER 2024-08-31 09:22 | Outpatient (CLI) | payer MEDICARE, SELFPAY ==
--- NOTE | 2024-08-31 09:27 | XR_ITS ---
FINAL REPORT CLINICAL HISTORY: left ankle pain COMPARISON: None FINDINGS: LEFT FOOT Three views demonstrate no acute fracture or dislocation. There are moderate hypertrophic changes at the base of the fifth metatarsal. No acute soft tissue abnormality is seen. A large plantar spur is noted. The mortise is intact. IMPRESSION: Degenerative changes without acute bony abnormality. Reviewed, Interpreted and Dictated by Power Doe MD Transcribed by Mary Low Authenticated and [facility]
--- NOTE | 2024-08-31 09:27 | XR_ITS ---
FINAL REPORT CLINICAL HISTORY: left ankle pain COMPARISON: None FINDINGS: LEFT ANKLE 3 views of the left ankle were obtained. There is no acute fracture or dislocation. The mortise is intact. Visualized joint spaces are normally aligned. Soft tissues are unremarkable. A large plantar spur is seen on the lateral view. IMPRESSION: Large plantar spur without acute bony abnormality. Reviewed, Interpreted and Dictated by Power Doe MD Transcribed by Mary Low Authenticated and [facility]
== END 2024-08-31 23:59 | disposition home or self-care (01) ==
LOC: RAD 09:24
PROVIDERS: PCP Family Medicine; Visit Provider Physician Assistant
DX: M79.672 Pain in left foot (principal); M25.572 Pain in left ankle and joints of left foot
CPT/HCPCS: 73610; 73630

== ENCOUNTER 2024-10-13 08:12 | Outpatient (CLI) | payer MEDICARE, SELFPAY ==
--- OUTSIDE RECORDS SUMMARY | 2024-10-13 08:16 | XMS_ITS | Patient Health Record ---
Author Organization [facility] Address [address] [facility] [address] [place] [id number] Care Team Providers Care Erp Business Analyst Name Role Phone Karla Mosley Primary Care Provider Varun Coreas Unavailable [phone] Elisabeth Mcdaniels Unavailable [phone] Bozena Crain Unavailable [phone] ALLERGIES Allergen (clinical drug ingredient) Drug/Non Drug Allergy documented on EMR Reaction Allergy Type Onset Date Status Substance with sulfonamide structure and antibacterial mechanism of action (substance) Sulfa Antibiotics rash Drug Allergy Active RESULTS Component Value Reference Range Notes P-Uric Acid Reviewed date:04/29/2024 10:32:47 PM Interpretation: Performing Lab: Notes/Report: CLIA: [id number] Ramon Gerber MD, Supervisor [facility] , [address], [place] [address] Test performed by [employer], jellyfish Uric Acid 5.4 2.4-7.0 mg/dL X ray : Foot, right Reviewed date:04/17/2024 09:59:17 AM Interpretation: Performing Lab: Notes/Report: Mammogram Reviewed date:12/12/2023 02:10:18 PM Interpretation: Performing Lab: Notes/Report: result REASON FOR REFERRAL Diagnosis 1 Tendinitis of right foot (M77.51) Referral Organization [facility] Referring Provider First Name Bozena Referring Provider Last Name Breann Referring Provider Speciality Physician Supervisor Dry Cleaning Referred Provider PODIATRY, . Referred Provider Specialty Podiatry General Notes Bozena Crain 5/16 /2024 12:47:59 PM > Pt needs an appt with podiatrySabine Brynn 04/16/2024 1:12:51 PM > faxed referral Referral Priority Routine MEDICATIONS Medication SIG (Take, Route, Frequency, Duration) Notes Start Date End Date Status Meloxicam 7.5 MG 1 tablet Orally Once a day Active hydroCHLOROthiazide 12.5 MG 1 capsule in the morning Orally Once a day for 90 days 09/16/2023 Active Fluticasone Propionate 50 MCG/ACT 1 spray(s) in each nostril once a day 01/08/2022 Active Methocarbamol 500 MG 1 tablet Orally thr ee times a day as needed 04/16/2024 Active Levothyroxine Sodium 112 MCG Take 1 tabl et by mouth once daily Active Voltaren 1 % as directed Externally four times a day as needed 04/16/2024 Active Lila Allergy 180 MG 1 tab(s) orally o nce a day Active Clobetasol Propionate 0.05 % 1 tati appli ed topically bid prn for 30 days 09/20/2022 Active Aspir-Low 81 MG 1 tab(s) orally once a day Active IMMUNIZATIONS Vaccine Route Administration Date Status Comme nts COVID 19 Moderna Unknown 12/09/2020 Administered COVID 19 Moderna Unknown 01/10/2021 Administered COVID 19 Moderna Unknown 09/21/2021 Administered Fluzone High Dose (65yr and older) IM Intramuscular 09/14/2020 Administered Fluzone High Dose (65yr and older) IM Intramuscular 09/11/2021 Administered Fluzone High Dose (65yr and older) IM Intramuscular 09/12/2022 Administered Fluzone High Dose (65yr and older) IM Intramuscular 09/16/2023 Administered Fluzone High Dose (65yr and older) IM Intramuscular 10/12/2024 Administered PNEUMOVAX 23 VACCINE IM Intramuscular 06/18/2017 Administe red Prevnar (PCV13) IM Intramuscular 03/15/2015 Administered Shingrix Unknown 03/11/2024 Administered Tetanus Tdap-Adacel (over 7yrs) IM Intramuscular 04/21/2012 Administered SOCIAL HISTORY Sex Assigned At : Social History Observation Description Sex Assigned At Unknown PROBLEMS Problem Type ICD Code Onset Dates Problem Status W/U Status Risk SNOMED Code Notes Problem HTN (hypertension) (I10) Active confirmed Hypertension (43243777) Problem Hyperlipidemia (E78.5) Active confirmed Hyperlipidemia (82158816) Problem Hypothyroidism (acquired) (E03.9) Active confirmed Hypothyroidism (81964554) Problem Environmental allergies (Z91.048) Active confirmed Environmental allergy (629718316) Problem Hypothyroidism (E03.9) Active confirmed Hypothyroidism (38739730) Problem Hyperlipidemia, unspecified hyperlipidemia type (E78.5) Active confirmed 06608598 Problem Abnormal finding on breast imaging (R92.8) Active confirmed 644144005 Problem Adult BMI 45.0-49.9 kg/sq m (Z68.42) Active confirmed Body mass index 40+ - severely obese (802322691) VITAL SIGNS Heart Rate 75 /min 10/12/2024 Blood pressure diastolic 82 mm Hg 10/12/2024 Height 62.50 in 10/12/2024 Blood pressure systolic 130 mm Hg 10/12/2024 Weight 254.6 lbs 10/12/2024 BMI 45.82 kg/m2 10/12/2024 Encounters Encounter Location Date Provider Diagnosis [facility] [address] [facility] [address] [place], [place] [id number] 12/12/2023 Karla Mosley [facility] [address] [facility] [address] [place], [place] [id number] 12/23/2023 Elisabeth Mcdaniels Shoulder pain M25.51 9 [facility] [address] [facility] [address] [place], [place] [id number] 01/14/2024 Karla Mosley HTN (hypertension) I 10 [facility] [address] [facility] [address] [place], [place] [id number] 03/09/2024 Karla Mosley HTN (hypertension) I 10 [facility] [address] [place], [place] [id number] 04/01/2024 Bozena Crowdy Tendinitis of right foot M77.51 [facility] [address] [facility] [address] [place], [place] [id number] 04/13/2024 Karla Mosley HTN (hypertension) I 10 [facility] [address] [facility] [address] [place], [place] [id number] 04/16/2024 Bozena Crowdy Tendinitis of right foot M77.51 [facility] [address] [facility] [address] [place], [place] [id number] 04/17/2024 Bozena Crain [facility] [address] [facility] [address] [place], [place] [id number] 04/28/2024 R Benja Lomelifleet Cellulitis L03.90 an d Foot pain M79.673 [facility] [address] [facility] [address] [facility] [address] [place], [place] [id number] 04/29/2024 R Benja Lyudmila [facility] [address] [facility] [address] [place], [place] [id number] 08/31/2024 Karla Marty Dimitri [facility] [address] [facility] [address] [place], [place] [id number] 10/12/2024 Elisabeth Mcdaniels Encounter for immunization Z23 ; Adult general medical examination Z00.00 ; Hypothyroidism E03.9 ; HTN (hypertension) I10 ; Screening for diabetes mellitus Z13.1 ; Osteopenia M85.80 ; Environmental allergies Z91.048 ; Hyperlipidemia E78.5 ; Adult BMI 45.0-49.9 kg/sq m Z68.42 and Polyarthralgia M25.50 ASSESSMENTS Encounter Date Diagnosis Assessment Notes Treatment Notes Treatment Clinical Notes 01/14/2024 HTN (hypertension) (ICD-10 - I10) 04/13/2024 HTN (hypertension) (ICD-10 - I10) 04/16/2024 Tendinitis of right foot (ICD-10 - M77.51) 04/28/2024 Cellulitis (ICD-10 - L03.90) 04/28/2024 Foot pain (ICD-10 - M79.673) Keep appointment with podiatry clinic as scheduled 10/12/2024 Encounter for immunization (ICD-10 - Z23) 10/12/2024 Adult general medica l examination (ICD-10 - Z00.00) 04/01/2024 Tendinitis of right foot (ICD-10 - M77.51) Will ice and stretch the foot. If no improvement, will get x-rays and refer to podiatry. 03/09/2024 HTN (hypertension) (ICD-10 - I10) 12/23/2023 Shoulder pain (ICD-1 0 - M25.519) med with food; continue with NSAID with food; heat and ice application prn ;stretchoing exercise 10/12/2024 Hypothyroidism (ICD-10 - E03.9) 10/12/2024 HTN [...] have labs done fasting this week at [facility] PLAN OF TREATMENT Pending Test Test Name Order Date Glycohemoglobin (HbA1C) 10/12/2024 Magnesium 10/12/2024 Bone density 10/12/2024 CMP 10/12/2024 Arthritis profile 10/12/2024 lipid profile 10/12/2024 CBC 10/12/2024 TSH+Free T4 10/12/2024 LC-Troponin I 01/01/2022 Insurance Providers Payer Name Payer Address Payer Phone Subscriber Number Group Number Insured Name Patient Relationship to Insured Coverage Start Date Coverage End Date [employer] PLUS [facility] [address] [address] [place], [place] [id number] Mariola GUTIERREZ Self - patient is the insured MEDICATIONS ADMINISTERED Medication Instructions Date of Administration Dosage Notes Depo- Medrol 40 mg/ml 04/08/2023 1 mL Dexamethasone 03/11/2007 1 cm3 Dexamethasone 03/07/2020 1 mL Dexamethasone 02/18/2023 1 mL Dexamethasone 12/23/2023 1 mL MEDICAL (GENERAL) HISTORY Medical History History ICD Code Hypothyroidism Surgical History Surgery Date(Month/Year) c- section X2 Precancerous lump removal of right breas t 2005 US guided breast biopsy left breast-mesfin gn. In-Office 03/22/17 left cataract surgery 3/22/18 right cataract surgery 04/10/18 Hospitalization History Reason Date(Month/Year) see above
--- OUTSIDE RECORDS SUMMARY | 2024-10-13 08:16 | XMS_ITS ---
Author Organization [place] Address [address] [facility] [address] [place] [id number] Care Team Providers Care Tag Machine Operator Name Role Phone Karla Mosley Primary Care Provider REASON FOR VISIT Refill MEDICATIONS Medication SIG (Take, Route, Frequency, Duration) Notes Start Date End Date Status Levothyroxine Sodium 112 MCG Take 1 tabl et by mouth once daily for 90 days Active Encounters Encounter Location Date Provider Diagnosis Brian [address] [facility] [address] [place] [id number] 08/31/2024 Karla Mosley PLAN OF TREATMENT Medication Medication Name Sig Start Date Stop Date Notes Levothyroxine Sodium 112 MCG Take 1 tabl et by mouth once daily for 90 days
--- OUTSIDE RECORDS SUMMARY | 2024-10-13 08:16 | XMS_ITS ---
[facility] Address [address] [facility] [address] [place] [id number] Care Team Providers Care Crop Or Livestock Tenant Farmer Name Role Phone Karla Mosley Primary Care Provider [phone] Varun Coreas Unavailable [phone] REASON FOR VISIT Test results Encounters Encounter Location Date Provider Diagnosis [place] [address] [facility] [address] [place] [id number] 04/29/2024 Varun Coreas PLAN OF TREATMENT No Information
--- OUTSIDE RECORDS SUMMARY | 2024-10-13 08:16 | XMS_ITS ---
[facility] Organization [facility] Address [address] [place] [id number] Care Team Providers Care Hollow Ware Maker Name Role Phone Karla Mosley Primary Care Provider Elisabeth Mcdaniels Unavailable [phone] ALLERGIES Allergen (clinical drug ingredient) Drug/Non Drug Allergy documented on EMR Reaction Allergy Type Onset Date Status Substance with sulfonamide structure and antibacterial mechanism of action (substance) Sulfa Antibiotics rash Drug Allergy Active REASON FOR VISIT Check Up, Refills and Flu Vaccine, Needs labs, bone density screening, & flu vaccine MEDICATIONS Medication SIG (Take, Route, Frequency, Duration) [...] bid prn for 30 days 09/20/2022 Active IMMUNIZATIONS Vaccine Route Administration Date Status Comme nts Fluzone High Dose (65yr and older) IM Intramuscular 10/12/2024 Administered VITAL SIGNS Weight 254.6 lbs 10/12/2024 Blood pressure systolic 130 mm Hg 10/12/20 24 Blood pressure diastolic 82 mm Hg 024 Heart Rate 75 /min 10/12/2024 Height 62.50 in 10/12/2024 BMI 45.82 kg/m2 10/12/2024 Encounters Encounter Location Date Provider Diagnosis [facility] [address] [facility] [address] [facility] [address] [place] [id number] 10/12/2024 Elisabeth Mcdaniels Encounter for immunization Z23 ; Adult general medical examination Z00.00 ; Hypothyroidism E03.9 ; HTN (hypertension) I10 ; Screening for diabetes mellitus Z13.1 ; Osteopenia M85.80 ; Environmental allergies Z91.048 ; Hyperlipidemia E78.5 ; Adult BMI 45.0-49.9 kg/sq m Z68.42 and Polyarthralgia M25.50 ASSESSMENTS Encounter Date Diagnosis Assessment Notes Treatment Notes Treatment Clinical Notes 10/12/2024 Encounter for immunization (ICD-10 - Z23) 10/12/2024 Adult general medica l examination (ICD-10 - Z00.00) 10/12/2024 Hypothyroidism (ICD-10 [...] have labs done fasting this week at [facility] PLAN OF TREATMENT Medication Medication Name Sig Start Date Stop Date Notes hydroCHLOROthiazide 12.5 MG 1 capsule in the morning Orally Once a day for 90 days 09/16/2023 Fluticasone Propionate 50 MCG/ACT [...] have labs done fasting this week at [facility] Pending Test Test Name Order Date Glycohemoglobin (HbA1C) 10/12/2024 Magnesium 10/12/2024 Bone density 10/12/2024 CMP 10/12/2024 Arthritis profile 10/12/2024 lipid profile 10/12/2024 CBC 10/12/2024 TSH+Free T4 10/12/2024 Next Appt Details Follow Up: 6 Months,and prn, Reason: Progress Notes * Examination Category Sub-Category Detail Notes General Examination HEENT: sclera and c onjunctiva clear, PERRLA, TM's normal, translucent Heart: RRR no ectopics Lungs: CTAB A&P Extremities: no leg edema General Appearance: NAD appears healthy alert pleasant Neurologic Exam: alert and oriented Neck: supple no lymphadeno tierney no carotid bruits thyroid normal Oral cavity: mucosa moist and WNL no erythema History and Physical Notes * HPI (History of Present Illness) Category Sub-Category Detail Notes Endocrinology Maintenance Pt is not fastin g [...]
[2024-10-13 08:46] LABS: Basophils # 0.1 K/mm3 (0-0.2); Basophils % 1.4 % (0.1-2.0); Eosinophils # 0.2 K/mm3 (0.0-0.4); Hematocrit 42.1 % (37.0-47.0); Hemoglobin 14.4 g/dL (12.2-16.2); Lymphocytes # 1.5 K/mm3 (0.7-4.5); Lymphocytes % 18.2 % (10-50); Mean Corpuscular HGB Conc 34.1 g/dL (31.8-35.4); Mean Corpuscular Volume 90.7 fl (81-99); Mean Platelet Volume 8.6 fl (7.4-10.4); Monocytes # 0.7 K/mm3 (0.1-1.0); Monocytes % 8.1 % (1.7-9.3); Neutrophils # 5.6 K/mm3 (1.8-7.8); Neutrophils % 69.3 % (37.0-80.0); Platelet Count 247 K/mm3 (142-424); Red Blood Count 4.64 M/mm3 (4.20-5.40); Red Cell Distribution Width 14.3 % (11.5-17.5)
[2024-10-13 08:52] LABS: Alanine Aminotransferase 33 U/L (12-78); Albumin Level 4.1 g/dl (3.5-5.0); Albumin/Globulin Ratio 1.3 (1.1-1.8); Alkaline Phosphatase 58 U/L (38-126); Aspartate Amino Transferase 36 U/L (14-36); Bilirubin,Total 0.8 mg/dl (0.2-1.3); Blood Urea Nitrogen 16 mg/dl (7-17); Calcium 9.1 mg/dl (8.4-10.2); Carbon Dioxide 30 mmol/L (22.0-30.0); Chloride 104 mmol/L (98-107); Chol/HDL Ratio 2.6 (1-3.5); Cholesterol 169 mg/dl (140-200); Estimated Glomerular Filt Rate 54 ml/min (>60); GFR (African American) 65 ML/MIN (>60); Globulin 3.1 g/dL (1.3-3.2); Glucose 107 mg/dl (74-100); HDL Cholesterol 64 mg/dl (40-60); Magnesium 2.1 mg/dl (1.6-2.3); Sodium 139 mmol/L (136-145); Total Protein,Serum 7.2 g/dl (6.3-8.2); Triglycerides 78 mg/dl (30-150); Uric Acid 5.7 mg/dl (2.5-6.2); VLDL Cholesterol 16 mg/dL (0-40)
[2024-10-13 09:02] LABS: Direct LDL Cholesterol 79.81 mg/dL (100-129)
[2024-10-13 09:21] LABS: Thyroid Stimulating Hormone 0.64 uIU/mL (0.465-4.68)
[2024-10-13 09:35] LABS: Free T4 (Free Thyroxine) 1.53 ng/dl (0.78-2.19)
[2024-10-13 09:53] LABS: Erythrocyte Sedimentation Rate 19 mm/hr (0-30)
[2024-10-13 10:31] LABS: Hemoglobin A1C 5.6 % (4.0-6.0)
[2024-10-14 11:14] LABS: RA Latex Turbid. 10.4 IU/mL (<14.0)
[2024-10-28 09:12] LABS: Antinuclear Antibodies, IFA POSITIVE
== END 2024-10-13 23:59 | disposition home or self-care (01) ==
LOC: LAB 08:13
PROVIDERS: PCP Family Medicine; Visit Provider Nurse Practitioner Family
DX: M25.50 Pain in unspecified joint (principal); Z13.1 Encounter for screening for diabetes mellitus; E78.5 Hyperlipidemia, unspecified; E03.9 Hypothyroidism, unspecified; I10 Essential (primary) hypertension
CPT/HCPCS: 36415; 80053; 80061; 83036; 83735; 84439; 84443; 84550; 85025; 85651; 86038; 86431

== ENCOUNTER 2024-11-02 08:46 | Outpatient (CLI) | payer MEDICARE, SELFPAY ==
--- NOTE | 2024-11-02 08:52 | XR_ITS ---
FINAL REPORT TECHNIQUE: Bone densitometry calculations of the lumbar spine and left hip were obtained. CLINICAL HISTORY: SCREENING FINDINGS: Using L1-4, the bone mineral density of the spine is 1.05 g/cm2, corresponding to T-score of 0.0. Using the left hip, the bone mineral density of the femoral neck is 0.94 g/cm2, corresponding to a T-score of 0.1. Using the right hip, the bone mineral density of the femoral neck is 0.90 g/cm2, corresponding to a T-score of -0.3. NOTE: T-score: Standard deviation compared with peak bone mass of young adult mean. *Following the recommendations of the International Society of Bone Densitometry, classification of hip BMD is based on the lower of two T-scores; total hip or femoral neck. IMPRESSION: Low bone density of the femoral necks bilaterally. Normal bone density of the lumbar spine which is likely falsely elevated secondary to hypertrophic changes. Reviewed, Interpreted and Dictated by Yoandy Garcia III, MD Transcribed by Hollie Miller Authenticated and [facility]
== END 2024-11-02 23:59 | disposition home or self-care (01) ==
LOC: RAD 08:47
PROVIDERS: PCP Family Medicine; Visit Provider Nurse Practitioner Family
DX: M85.88 Other specified disorders of bone density and structure, other site (principal)
CPT/HCPCS: 77080

== ENCOUNTER 2025-04-13 10:29 | Outpatient (CLI) | payer MEDICARE, SELFPAY ==
--- OUTSIDE RECORDS SUMMARY | 2025-04-13 10:33 | XMS_ITS ---
Author Organization Unknown [facility] Start Date Provider Encounter for Check-up [phone] [facility]
--- NOTE | 2025-04-13 10:41 | XR_ITS ---
FINAL REPORT CLINICAL HISTORY: PAIN FINDINGS: RIGHT HIP 3 views of the right hip demonstrate no acute fracture or dislocation. The joint spaces appear normal. The visualized bony structures are well aligned. No soft tissue abnormality is seen. IMPRESSION: No acute bony abnormality. Reviewed, Interpreted and Dictated by Power Doe MD Transcribed by Hollie Miller Authenticated and [facility]
--- NOTE | 2025-04-13 10:41 | XR_ITS ---
FINAL REPORT TECHNIQUE: 3 views CLINICAL HISTORY: back pain x 1 week FINDINGS: There is no fracture present. There are no significant degenerative changes. There is 15 degrees of thoracic scoliosis, X to the right. Alignment is otherwise normal. There is ossification of the anterior longitudinal ligament noted. IMPRESSION: No acute bony abnormality. Reviewed, Interpreted and Dictated by Power Doe MD Transcribed by Hollie Miller Authenticated and [facility]
== END 2025-04-13 23:59 | disposition home or self-care (01) ==
LOC: RAD 10:31
PROVIDERS: PCP Family Medicine; Visit Provider Nurse Practitioner Family
DX: M54.50 Low back pain, unspecified (principal); M25.551 Pain in right hip; M41.84 Other forms of scoliosis, thoracic region; M67.88 Other specified disorders of synovium and tendon, other site
CPT/HCPCS: 72072; 73502

== ENCOUNTER 2025-04-19 09:21 | Outpatient (CLI) | payer MEDICARE, SELFPAY ==
--- NOTE | 2025-04-19 09:26 | XR_ITS ---
FINAL REPORT TECHNIQUE: 5 views CLINICAL HISTORY: ACUTE B/L LBP COMPARISON: None FINDINGS: LUMBAR SPINE: There is no fracture present. There is no malalignment. There is disc space narrowing present at the L2-3 level. Moderate facet sclerosis is present in the lower lumbar spine. IMPRESSION: Degenerative changes, with no acute process. Reviewed, Interpreted and Dictated by Power Doe MD Transcribed by Amy Echeverria Authenticated and [facility]
== END 2025-04-19 23:59 | disposition home or self-care (01) ==
LOC: RAD 09:22
PROVIDERS: PCP Family Medicine; Visit Provider Nurse Practitioner Family
DX: M47.9 Spondylosis, unspecified (principal); M54.50 Low back pain, unspecified; M25.551 Pain in right hip
CPT/HCPCS: 72110

== ENCOUNTER 2025-05-13 07:23 | Day surgery (SDC) | payer MEDICARE, SELFPAY ==
[2025-05-12 10:36] VITALS: BMI 45.7
[2025-05-13 07:49] VITALS: BP 99/62; PULSE 84; RESP 18; TEMP 36.4; O2SAT 98
[2025-05-13] MEDS: LACTATED RINGERS 1000ML 1,000 ML 50 ML IV (08:04)
--- NOTE | 2025-05-13 08:19 | EXP.ANES.CKL ---
[facility] Disclaimer: The information contained in this section may have been updated after the patient was seen, as this information can be updated by other users. Medical History Hypertension Lymphedema Acid reflux disease Depression Peripheral vascular disease Diverticulosis Surgical History (Updated 05/12/25 @ 10:34 by Yung Pope) H/O section History of lumpectomy Family History Other Diabetes Hypertension Osteoarthritis Thyroid disorder Social History Smoking Status: Never smoker alcohol intake: never substance use type: denies use current occupational status: retired Travel in the last 8 weeks?: Inside the [place] household members: spouse housing: house Have you lived/traveled outside US in past 30 days?: No Contact w/someone who lives/traveled outside US past 30 days?: No Exposure to someone with infectious disease in past 14 days?: No Do you have a fever (greater than 100.4 F or 38 C)?: No Have you tested positive for COVID-19?: No Exposed to someone with COVID-19 in past 14 days?: No Do you have a sore throat?: No Do you have a cough?: No Do you have any weakness?: No Do you have any diarrhea?: No Are you experiencing any unusual bleeding?: No Do you have any muscle aches/pain?: No Do you have any abdominal pain?: No Are you experiencing loss of taste or smell?: No [facility] Anesthesia Checklist Patient Identification Patient Identification: Verbal (Name & ) Structural Data Admitted From: Home Planned Operative Procedure/s: colonoscopy Consent for Planned Operative Procedure(s) Verified: Yes NPO Status Verified Time NPO: 00:00 Airway Assessment Mallampati Score:: Class II C-Spine Mobility Assessed: Yes TMJ Mobility Assessed: Yes Dentition: Good Dentition Neurological Assessment Level of Consciousness: Awake, Alert and Appropriate Anesthesia Plan Anesthesia Risk discussed: Yes Anesthesia Plan: Verified ASA Class: II Anesthesia Type: MAC
--- NOTE | 2025-05-13 08:43 | EXP.HP ---
History of Present Illness *Admission Date: 05/13/25 *Reason for visit:: Personal history of adenomatous colon polyps *History of present illness: Mrs. Gutierrez is a 79-year-old female who is here for surveillance colonoscopy secondary to a personal history of adenomatous colon polyps. The examination is deemed medically necessary for surveillance colonoscopy. The patient has been seen, interviewed and examined prior to the procedure by both myself and the anesthesia provider. [facility] Disclaimer: The information contained in this section may have been updated after the patient was seen, as this information can be updated by other users. Medical History (Updated 05/13/25 @ 08:52 by Nick Ruiz II, MD) Hypertension Lymphedema Acid reflux disease Depression Peripheral vascular disease Diverticulosis Surgical History (Updated 05/12/25 @ 10:34 by Yung Pope) H/O section History of lumpectomy Family History Other Diabetes Hypertension Osteoarthritis Thyroid disorder Social History Smoking Status: Never smoker alcohol intake: never substance use type: denies use current occupational status: retired Travel in the last 8 weeks?: Inside the [place] household members: spouse housing: house Have you lived/traveled outside [place] in past 30 days?: No Contact w/someone who lives/traveled outside [place] past 30 days?: No Exposure to someone with infectious disease in past 14 days?: No Do you have a fever (greater than 100.4 F or 38 C)?: No Have you tested positive for COVID-19?: No Exposed to someone with COVID-19 in past 14 days?: No Do you have a sore throat?: No Do you have a cough?: No Do you have any weakness?: No Do you have any diarrhea?: No Are you experiencing any unusual bleeding?: No Do you have any muscle aches/pain?: No Do you have any abdominal pain?: No Are you experiencing loss of taste or smell?: No Other Medical History Have you received the Pneumonia Vaccine: Yes Review of Systems Review of Systems Review of systems (narrative): Negative *Cardiovascular Comments: Negative *Gastrointestinal Comments: Negative *Genitourinary Comments: Negative *Musculoskeletal Comments: Negative *Neurologic Comments: Negative Meds Home Medications and Allergies Home Medications ?Medication ?Instructions ?Recorded ?Confirmed ?Type levothyroxine 112 mcg capsule 112 mcg PO DAILY 06/27/21 05/12/25 History hydrochlorothiazide 12.5 mg capsule 12.5 mg PO DAILY 04/06/24 05/12/25 History meloxicam 7.5 mg tablet See Rx Instructions .Route 04/14/25 05/12/25 Rx .COMPLEX #30 tabs fexofenadine 180 mg tablet 180 mg PO DAILY #30 tabs 05/11/25 05/12/25 Rx (Lila Allergy) New Prescriptions to Start Prescriptions: Allergies Allergy/AdvReac Type Severity Reaction Status Date / Time Sulfa (Sulfonamide Allergy rash Verified 05/12/25 10:34 Antibiotics) Exam Data for Last 24 hours Vital signs and Labs for Last 24 Hours: Temp Pulse Resp BP Pulse Ox O2 Del Method 97.6 F 84 18 99/62 L 98 Room Air 05/13/25 07:49 05/13/25 07:49 05/13/25 07:49 05/13/25 07:49 05/13/25 07:49 05/13/25 07:49 I & O for Last 24 hours: Intake & Output 05/10/25 05/11/25 05/12/25 05/13/25 23:59 23:59 23:59 23:59 Weight 250 lb *Routine HEENT Exam Head: Present normocephalic Eye: Present EOMI and PERRL ENT: Present mucous membranes moist *Routine Neck Exam Neck: Present supple *Routine Respiratory Exam Respiratory: Present CTA bilaterally *Routine Cardiovascular Exam Cardiovascular: Present RRR *Routine Abdominal Exam Abdominal: Present soft and normoactive bowel sounds; Absent tenderness *Routine Rectal Exam Rectal:: deferred *Routine Genitalia Exam Genitalia:: deferred *Routine Extremities Exam Extremities: Absent cyanosis, clubbing or edema *Routine Skin Exam Skin: Present warm; Absent rash *Routine Neurological Exam Neurological: Present alert and oriented X3 Assessment and Plan *Assessment and plan (1) Personal history of adenomatous and serrated colon polyps: Status: Acute Category: Medical Code(s): Z86.0101 - Personal history of adenomatous and serrated colon polyps Plan A/P: 1. Personal history of adenomatous colon polyps is the preprocedural diagnosis. The patient will be anesthetized/sedated using MAC sedation. The patient has been seen and examined. Cardiac and lung assessment prior to the examination is stable. Proceed with planned follow-up surveillance colonoscopy.
--- NOTE | 2025-05-13 08:53 | P.PCN_ITS ---
[facility] Procedure Note Date: 05/13/25 Time: 09:08 Procedure Note:: Colonoscopy Procedure Report: Colonoscopy with cold snare polypectomy Endoscopist: Nick Ruiz II, MD Referring physician: Benja Coreas MD Date of Procedure: May 13, 2025 Equipment: Olympus 190 variable stiffness pediatric colonoscope Sedation: MAC sedation Indication: Mrs. Gutierrez is a 79-year-old female who is here for follow-up screening/surveillance colonoscopy secondary to a personal history of adenomatous colon polyps. Her last colonoscopy was 5 years ago and she had adenomatous polyps removed. She reports no abdominal pain, weight loss, change in her bowel habits or rectal bleeding. She reports no family history of colon cancer. Procedure: Prior to the procedure, a history and physical exam was performed, and patient's medications and allergies were reviewed. The risks, benefits and alternatives of the sedation and procedure were discussed with the patient. All questions were answered and informed consent was obtained. The patient was brought to the procedure room. Patient identification and proposed procedure were verified by the physician and the nurse. The patient was placed in a left lateral decubitus position and the scope was passed under direct vision. Throughout the proced ure, the patient's blood pressure, pulse, and oxygen saturations were monitored continuously. The colonoscopy was accomplished without difficulty. The patient tolerated the procedure well. Findings: On digital rectal examination there was normal rectal tone. There were no external hemorrhoids. The colonoscope was introduced through the anal canal to the rectum and advanced to the cecum. The ileocecal valve and appendiceal orifice were identified. The scope was advanced a short distance into the ileum which appeared grossly normal. The scope was then withdrawn into the colon. There were 2 diminutive polyps (ascending x 1 (5 mm) and sigmoid x 1 (4 mm)). Both of these were removed via cold snare polypectomy. The remaining cecum, ascending, transverse, descending, sigmoid and rectum were grossly normal. There were no other mucosal abnormalities identified. Upon retroflexion within the rectum there were grade 1-2 internal hemorrhoids. The preparation was excellent throughout with [place] Preparation Score of 9. The cecal time was 12 minutes. Impression: 1. Diminutive colonic polyps x 2 2. Grade 1-2 internal hemorrhoids Plan: I will follow-up the polyp histology and I am not convinced that she will require any further preventive/surveillance colonoscopy. I would like to obtain her prior colonoscopy reports.
[2025-05-13 09:12] VITALS: BP 117/63; PULSE 78; RESP 16; TEMP 36.2; O2SAT 94
[2025-05-13 09:22] VITALS: BP 126/62; PULSE 76; RESP 16; O2SAT 94
[2025-05-13 09:32] VITALS: BP 109/67; PULSE 71; RESP 17; O2SAT 97
[2025-05-13 09:42] VITALS: BP 118/80; PULSE 72; RESP 17; TEMP 36.2; O2SAT 94
== END 2025-05-13 09:45 | disposition home or self-care (01) ==
PROVIDERS: PCP Family Medicine; Visit Provider Internal Medicine Gastroenterology
PROC: 0DJD8ZZ Inspection of Lower Intestinal Tract, Via Natural or Artificial Opening Endoscopic (ICD-10-PCS; CPT 45378; principal; 2025-05-13 09:00)
DX: Z12.11 Encounter for screening for malignant neoplasm of colon (principal); Z86.0101 Personal history of adenomatous and serrated colon polyps; D12.2 Benign neoplasm of ascending colon; K63.5 Polyp of colon; K64.1 Second degree hemorrhoids; I10 Essential (primary) hypertension; K21.9 Gastro-esophageal reflux disease without esophagitis; M19.90 Unspecified osteoarthritis, unspecified site; Z79.890 Hormone replacement therapy; Z79.899 Other long term (current) drug therapy; Z79.1 Long term (current) use of non-steroidal anti-inflammatories (NSAID); Z88.2 Allergy status to sulfonamides
CPT/HCPCS: 45385; J2003; J2704; J7120

== ENCOUNTER 2025-06-23 06:57 | Outpatient (CLI) | payer MEDICARE, SELFPAY ==
--- OUTSIDE RECORDS SUMMARY | 2024-10-12 06:00 | XMS_ITS ---
Author Organization [facility] Address [address] [place] [id number] Care Team Providers Care Motion Designer Name Role Phone Karla Mosley Primary Care Provider Elisabeth Mcdaniels [phone] Allergies Allergen (clinical drug ingredient) Drug/Non Drug Allergy documented on EMR Reaction Allergy Type Onset Date Status Substance with sulfonamide structure and antibacterial mechanism of action (substance) Sulfa Antibiotics rash Drug Allergy Active Results Component Value Reference Range Notes Glycohemoglobin (HbA1C) Reviewed date:10/14/2024 01:02:13 PM Interpretation: Performing Lab: Notes/Report: Magnesium Reviewed date:10/13/2024 09:20:07 AM Interpretation: Performing Lab: Notes/Report: CMP Reviewed date:10/13/2024 09:20:19 AM Interpretation: Performing Lab: Notes/Report: Arthritis profile Reviewed date:10/13/2024 09:20:55 AM Interpretation: Performing Lab: Notes/Report: lipid profile Reviewed date:10/13/2024 09:20:31 AM Interpretation: Performing Lab: Notes/Report: CBC Reviewed date:10/13/2024 09:20:43 AM Interpretation: Performing Lab: Notes/Report: TSH+Free T4 Reviewed date:10/14/2024 01:02:29 PM Interpretation: Performing Lab: Notes/Report: Bone density Reviewed date:11/09/2024 09:08:52 AM Interpretation:osteopenia bilateral hips Performing Lab: Notes/Report: osteopenia bilateral hips Bone density osteopenia bilateral hips REASON FOR VISIT Check Up, Refills and Flu Vaccine, Needs labs, bone density screening, & flu vaccine Medications Medication SIG (Take, Route, Frequency, Duration) Notes Start Date End Date Status hydroCHLOROthiazide 12.5 MG 1 capsule in the morning Orally Once a day; Duration: 90 days 09/16/2023 Active Fluticasone Propionate 50 MCG/ACT 1 spray(s) in each nostril once a day 01/08/2022 Active Lila Allergy 180 MG 1 tab(s) orally o nce a day Active Meloxicam 7.5 MG 1 tablet Orally Once a day Active Methocarbamol 500 MG 1 tablet Orally thr ee times a day as needed 04/16/2024 Active Levothyroxine Sodium 112 MCG Take 1 tabl et by mouth once daily Active Voltaren 1 % as directed Externally four times a day as needed 04/16/2024 Active Aspir-Low 81 MG 1 tab(s) orally once a day Active Clobetasol Propionate 0.05 % 1 tati appli ed topically bid prn; Duration: 30 days 09/20/2022 Active Immunizations Vaccine Route Administration Date Status Comme nts Fluzone High Dose (65yr and older) IM Intramuscular 10/12/2024 Administered Vital Signs Weight 254.6 lbs 10/12/2024 Blood pressure systolic 130 mm Hg 10/12/20 24 Blood pressure diastolic 82 mm Hg 024 Heart Rate 75 /min 10/12/2024 Height 62.50 in 10/12/2024 BMI 45.82 kg/m2 10/12/2024 Encounters Encounter Location Date Provider Diagnosis [facility] [address] [id number] 10/12/2024 Elisabeth Mcdaniels Encounter for immunization Z23 ; Adult general medical examination Z00.00 ; Hypothyroidism E03.9 ; HTN (hypertension) I10 ; Screening for diabetes mellitus Z13.1 ; Osteopenia M85.80 ; Environmental allergies Z91.048 ; Hyperlipidemia E78.5 ; Adult BMI 45.0-49.9 kg/sq m Z68.42 and Polyarthralgia M25.50 Assessments Encounter Date Diagnosis (ICD Code) Assessment Notes Treatment Notes Treatment Clinical Notes Section Notes 10/12/2024 Encounter for immunization (ICD-10 - Z23) 10/12/2024 Adult general medical examination (ICD-10 - Z00.00) 10/12/2024 Hypothyroidism (ICD-10 - E03.9) 10/12/2024 HTN (hypertension) (ICD-10 - I10) 10/12/2024 Screening for diabetes mellitus (ICD-10 - Z13.1) 10/12/2024 Osteopenia (ICD-10 - M85.80) suggersted restarting calcium with vit D 10/12/2024 Environmental allergies (ICD-10 - Z91.048) 10/12/2024 Hyperlipidemia (ICD-10 - E78.5) 10/12/2024 Adult BMI 45.0-49.9 kg/sq m (ICD-10 - Z68.42) 10/12/2024 Polyarthralgia (ICD-10 - M25.50) 10/12/2024 Other will have labs done fasting this week at [facility] Plan Of Treatment Medication Medication Name Sig Start Date Stop Date Notes hydroCHLOROthiazide 12.5 MG 1 capsule in the morning Orally Once a day; Duration: 90 days 09/16/2023 Fluticasone Propionate 50 MCG/ACT 1 spra y(s) in each nostril once a day 01/08/2022 Lila Allergy 180 MG 1 tab(s) orally o nce a day Meloxicam 7.5 MG 1 tablet Orally Once a day Levothyroxine Sodium 112 MCG Take 1 tabl et by mouth once daily Voltaren 1 % as directed External ly four times a day as needed 04/16/2024 Aspir-Low 81 MG 1 tab(s) orally once a day Treatment Notes Assessment Notes Osteopenia suggersted restartin g calcium with vit D Other will have labs done fasting this week at [facility] Next Appt Details Follow Up: 6 Months,and prn, Reason: Progress Notes * Mariola URIBEeDOB:[birth year] (79 yo F)Acc No.[id number]:10/12/2024 Progress Notes Patient: Francisco COLEMANsherrie Rodriguez Provider: PJ Rosario :1945 A ge:78 Y S ex:Female Date:10/12/2024 Address:[facility] [address], [id number] Pcp:Karla Mosley Subjective: * Chief Complaints: * 1 . Check Up, Refills and Flu Vaccine. 2. Needs labs, bone density screening, & flu vaccine. * HPI: C ardiology: Blood Pressure Elevated P t presents today for a check up and refills. Pt would like her flu shot today. E ndocrinology: Maintenance P t is not fasting today. Pt sts that she may be due for thyroid. R heumatology: joint pain P t sts that she was really achy yesterday. Pt sts that she had COVID in September after he got it. Pt sts that she is unsure if it was the weather or what. She sts that she does have arthritis. * ROS: D ERMATOLOGY: no R tiffany. n o H julia. G ASTROENTEROLOGY: no N ausea. n o V omiting. n o D iarrhea.? U ROLOGY: no B lood in urine. n o F requent urination. ? * Medical History: H ypothyroidism. * Surgical History: c - section X2 , Precancerous lump removal of right breast 2005, US guided breast biopsy left breast-benign. In-Office 03/22/17, left cataract surgery 02/20/18, right cataract surgery 04/10/18. * Hospitalization/Major Diagno stic Procedure: s ee above . * Family History: F ather: . M other: . 1 sister(s) . 1 son(s) , 2 daughter(s) . . * Social History: C URRENT TOBACCO USE S moking Status: Patient does NOT smoke. C affeine: no. Exercise: yes. Home smoke detector use: yes. Marital Status: . New since last visit: none. Occupation: on the farm. Past smoking status: no, Smoking status: Does not smoke. Occup. exposure: none. Recreational drug use: no. Alcohol: no. Sexually active: yes. Travel ouside [place]: no. * Medications: T aking Lila Allergy 180 MG Tablet 1 tab(s) orally once a day , Taking Fluticasone Propionate 50 MCG/ACT Suspension 1 spray(s) in each nostril once a day , Taking Aspir-Low 81 MG Tablet Delayed Release 1 tab(s) orally once a day , Taking Clobetasol Propionate 0.05 % Gel 1 tati applied topically bid prn , Taking hydroCHLOROthiazide 12.5 MG Capsule 1 capsule in the morning Orally Once a day , Taking Meloxicam 7.5 MG Tablet 1 tablet Orally Once a day , Taking Methocarbamol 500 MG Tablet 1 tablet Orally three times a day as needed , Taking Voltaren 1 % Gel as directed Externally four times a day as needed , Taking Levothyroxine Sodium 112 MCG Tablet Take 1 tablet by mouth once daily , Discontinued Doxycycline Hyclate 100 MG Capsule 1 capsule Orally Two times a day , Discontinued Cephalexin 500 MG Capsule 1 capsule Orally Three times a day , Medication List reviewed and reconciled with the patient * Allergies: S ulfa Antibiotics: rash. Objective: * Vitals: W t:254.6, Temp:98.1, BP:130/82, HR:75, Nurse:SHAUNNA, Ht: 62.50, BMI:45.82. * Examination: G eneral Examination: General Appearance: NAD appears healthy alert pleasant.?HEENT: sclera and conjunctiva clear, PERRLA, TM's normal, translucent. O ral cavity:? mucosa moist and WNL no erythema. N akiko: supple no lymphadenopathy no carotid bruits thyroid normal. H eart: RRR no ectopics. L ungs: CTAB A&P. N eurologic Exam: alert and oriented. E xtremities: no leg edema. Assessment: * Assessment: 1. A dult general medical examination - Z00.00 (Primary) 2 . E ncounter for immunization - Z23 3 . H ypothyroidism - E03.9 4 . H TN (hypertension) - I10 5 . S creening for diabetes mellitus - Z13.1 6 . O steopenia - M85.80 7 . E nvironmental allergies - Z91.048 ?8. H yperlipidemia - E78.5 9 . A dult BMI 45.0-49.9 kg/sq m - Z68.42? 10. P olyarthralgia - M25.50 Plan: * Treatment: 2.?HTN (hypertension)? Refill hydroCHLOROthiazide Capsule, 12.5 MG, 1 capsule in the morning, Orally, Once a day, 90 days,90 Capsule, Refills 1.?LAB: CMP (Collection Date & Time - 10/13/2024)* see duplicate order 3.?Screening for diabetes mellitus?LAB: Glycohemoglobin (HbA1C) (Collection Date & Time - 10/14/2024)* see duplicate order 4.?Osteopenia?Imaging: Bone density (Performed Date - 11/02/2024)?osteopenia bilateral hips* Value Reference Range B one density osteopenia bilateral hips * Odalys Regalado 10/15/2024 10:0 5:00 AM > faxed to [facility] Marlee Nino 10/26/2024 9:23:15 AM > 11/02/2024 @ 9:00 AMHElisabeth patton 11/09/2024 9:05:34 AM >Elisabeth Mcdaniels 11/09/2024 9:08:24 AM > I spoke with pt and reported results; to continue with CA++ with vit D Notes: suggersted restarting calcium with vit D??5.?Environmental allergies? Continue Lila Allergy Tablet, 180 MG, 1 tab(s), orally, once a day;?Continue Fluticasone Propionate Suspension, 50 MCG/ACT, 1 spray(s), in each nostril, once a day.??6.?Hyperlipidemia?LAB: lipid profile (Collection Date & Time - 10/13/2024)* see duplicate order 7.?Polyarthralgia? Continue Meloxicam Tablet, 7.5 MG, 1 tablet, Orally, Once a day;?Continue Voltaren Gel, 1 %, as directed, Externally, four times a day as needed.?LAB: Magnesium (Collection Date & Time - 10/13/2024)* see duplicate order ?LAB: Arthritis profile (Collection Date & Time - 10/13/2024)* see duplicate order ?LAB: CBC (Collection Date & Time - 10/13/2024)* see duplicate order 8.?Others? Continue Aspir-Low Tablet Delayed Release, 81 MG, 1 tab(s), orally, once a day.?? Notes: will have labs done fasting this week at [facility]?? * Immunizations: Fluzone High Dose (65yr and older) : 0.5 mL (Route: Intramuscular) given by Marlee Jacobs on Right Deltoid (Encounter for immunization) * Follow Up: 6 Months,and prn * Images: Billing Information: * Visit Code: 21028 Office Visit, Est Pt., Level 4. * Procedure Codes: * Electronic signature of Lyndsay bernalkong Mcdaniels APRN on 06/23/2025 at 07:01 AM EDT Sign off status: Pending * Provider: PJ Rosario Date: 1 12/12/2023 Generated for Trina sims/Hector/Juan on: 0 06/23/2025 07:01 AM EDT History and Physical Notes * HPI (History of Present Illness) Category Sub-Category Detail Notes Category Not es Endocrinology Maintenance Pt is not fastin g today. Pt sts that she may be due for thyroid Cardiology Blood Pressure Elevated Pt prese nts today for a check up and refills. Pt would like her flu shot today Rheumatology joint pain Pt sts that she was really achy yesterday. Pt sts that she had COVID in September after he got it. Pt sts that she is unsure if it was the weather or what. She sts that she does have arthritis Examination Category Sub-Category Detail Notes Category Not es General Examination HEENT: sclera and c onjunctiva clear, PERRLA, TM's normal, translucent Heart: RRR no ectopics Lungs: CTAB A&P Extremities: no leg edema General Appearance: NAD appears healthy alert pleasant Neurologic Exam: alert and oriented Neck: supple no lymphadeno tierney no carotid bruits thyroid normal Oral cavity: mucosa moist and WNL no erythema
--- OUTSIDE RECORDS SUMMARY | 2024-12-23 10:15 | XMS_ITS ---
Author Organization [facility] Address [address] [place] [id number] Care Team Providers Care Filling Machine Set Up Mechanic Name Role Phone Karla Mosley Primary Care Provider [phone] RoniMohit watsona Unavailable [phone] Allergies Allergen (clinical drug ingredient) Drug/Non Drug Allergy documented on EMR Reaction Allergy Type Onset Date Status Substance with sulfonamide structure and antibacterial mechanism of action (substance) Sulfa Antibiotics rash Drug Allergy Active Results Component Value Reference Range Notes CBC Fingerstick (in house) Reviewed date:12/23/2024 04:14:02 PM Interpretation: Performing Lab: Notes/Report: wbc 12.7 3.5 - 10 lym 24.2% 15 - 50 mid 5.5% 2 - 15 gran 70.3% 35 - 80 rbc 4.97 3.5 - 5.5 hgb 14.5 11.5 - 16.5 hct 44.7 35 - 55 mcv 89.9 75 - 100 mch 29.2 25 - 35 mchc 32.5 31 - 38 plat 159 100 - 400 REASON FOR VISIT congestion, sore throat Medications Medication SIG (Take, Route, Frequency, Duration) Notes Start Date End Date Status Voltaren 1 % as directed Externally four times a day as needed 04/16/2024 Active Aspir-Low 81 MG 1 tab(s) orally once a day Active Lila Allergy 180 MG 1 tab(s) orally o nce a day Active Fluticasone Propionate 50 MCG/ACT 1 spray(s) in each nostril once a day 01/08/2022 Active Levothyroxine Sodium 112 MCG Take 1 tabl et by mouth once daily; Duration: 90 days Active hydroCHLOROthiazide 12.5 MG 1 capsule in the morning Orally Once a day; Duration: 90 days 09/16/2023 Active Clobetasol Propionate 0.05 % 1 tati appli ed topically bid prn; Duration: 30 days 09/20/2022 Active Methocarbamol 500 MG 1 tablet Orally thr ee times a day as needed 04/16/2024 Active Meloxicam 7.5 MG 1 tablet Orally Once a day Active Benzonatate 200 MG 1 capsule Orally Three times a day 12/23/2024 Active Zithromax Z-Livan 250 MG 2 pills first day then one daily for 4 days orally as directed; Duration: 5 days 12/23/2024 Active Vital Signs Weight 253.4 lbs 12/23/2024 Blood pressure systolic 136 mm Hg 12/23/19 25 Blood pressure diastolic 84 mm Hg 025 Heart Rate 85 /min 12/23/2024 Height 62.50 in 12/23/2024 BMI 45.60 kg/m2 12/23/2024 Encounters Encounter Location Date Provider Diagnosis [facility] [address], [place] [id number] 12/23/2024 Bozena Crain Acute URI J06.9 Assessments Encounter Date Diagnosis (ICD Code) Assessment Notes Treatment Notes Treatment Clinical Notes Section Notes 12/23/2024 Acute URI (ICD-10 - J06.9) Plan Of Treatment Medication Medication Name Sig Start Date Stop Date Notes Benzonatate 200 MG 1 capsule Orally Three times a day 12/03 Zithromax Z-Livan 250 MG 2 pills first day then one daily for 4 days orally as directed; Duration: 5 days 12/23/2024 Next Appt Details Follow Up: prn, Reason: Progress Notes * Mariola URIBEeDOB:[birth year] (79 yo F)Acc No.[id number]:12/23/2024 Progress Notes Patient: Mariola COLEMAN Provider: RIO Shaffer :1945 A ge:79 Y S ex:Female Date:12/23/2024 Address:[facility] [address], [place], [id number] Pcp:Karla Mosley Subjective: * Chief Complaints: * 1 . Congestion, sore throat. * HPI: E NT/respiratory: 79 year old female presents with c/o sore throat. c/o cough P t presents today with c/o sore throat, sore mouth, cough with green sputum production. Pt sts that her throat is really scratchy and dry. Pt sts that she coughs a lot especially in the mornings. c/o Fever. * ROS: D ERMATOLOGY: no R tiffany. [...] ouside US: no. * Medications: T aking hydroCHLOROthiazide 12.5 MG Capsule 1 capsule in the morning Orally Once a day , Taking Clobetasol Propionate 0.05 % Gel 1 tati applied topically bid prn , Taking Methocarbamol 500 MG Tablet 1 tablet Orally three times a day as needed , Taking Meloxicam 7.5 MG Tablet 1 tablet Orally Once a day , Taking Voltaren 1 % Gel as directed Externally four times a day as needed , Taking Aspir-Low 81 MG Tablet Delayed Release 1 tab(s) orally once a day , Taking Lila Allergy 180 MG Tablet 1 tab(s) orally once a day , Taking Fluticasone Propionate 50 MCG/ACT Suspension 1 spray(s) in each nostril once a day , Taking Levothyroxine Sodium 112 MCG Tablet Take 1 tablet by mouth once daily , Medication List reviewed and reconciled with the patient * Allergies: S ulfa Antibiotics: rash. Objective: * Vitals: W t:253.4, Temp:98.5, BP:136/84, HR:85, O2 Sat:96% on RA, Nurse:SHAUNNA, Ht: 62.50, BMI:45.60. * Examination: E NT/Respiratory: General Appearance: N AD. E ars: a uditory canals normal bilaterally, TM's WNL. N ose : t urbinates red, congested. S inuses : tender maxillary sinuses bilaterally. O ral cavity : erythema without exudate on pharynx, PND present. N akiko : n o cervical lymphadenopathy. H eart : R RR, normal S1 S2, no murmurs. L ungs: c lear to auscultation bilaterally. Assessment: * Assessment: 1. Samy oseguera URI - J06.9 (Primary) Plan: * Treatment: Value Reference Range w bc 12.7 3.5 - 10 * l ym 24.2% 15 - 50 * m id 5.5% 2 - 15 * g ran 70.3% 35 - 80 * r bc 4.97 3.5 - 5.5 * h gb 14.5 11.5 - 16.5 * h ct 44.7 35 - 55 * m cv 89.9 75 - 100 * m ch 29.2 25 - 35 * m chc 32.5 31 - 38 * p lat 159 100 - 400 * Nataliya Garcia 12/23/2024 3:46:20 PM > , Provider reviewed results while patient in office. * Procedure Codes: 9 47[address] [place], [address] CAPILLARY BLOOD DRAW, 79325 CBC WITH AUTO DIFF * Follow Up: p rn * Images: Billing Information: * Visit Code: 80458 Office Visit, Est Pt., Level 3. * Procedure Codes: [address] [place]. [address] CAPILLARY BLOOD DRAW. 18993 CBC WITH AUTO DIFF. * Electronic signature of RIO Torrez on 06/23/2025 at 07:01 AM EDT Sign off status: Pending * Provider: RIO Shaffer Date: 0 12/23/2024 Generated for Trina sims/Hector/Juan on: 0 06/23/2025 07:01 AM EDT History and Physical Notes * HPI (History of Present Illness) Category Sub-Category Detail Notes Category Not es ENT/respiratory sore throat cough Pt presents today wi th c/o sore throat, sore mouth, cough with green sputum production. Pt sts that her throat is really scratchy and dry. Pt sts that she coughs a lot especially in the mornings Fever Examination Category Sub-Category Detail Notes Category Not es ENT/Respiratory Oral cavity : erythema without exudate on pharynx, PND present Sinuses : tender maxillary sin uses bilaterally Ears: auditory canals norm al bilaterally, TM's WNL Neck : no cervical lymphade nopathy Heart : RRR, normal S1 S2, n o murmurs Lungs: clear to auscultatio n bilaterally General Appearance: NAD Nose : turbinates red, tiffany ested
--- OUTSIDE RECORDS SUMMARY | 2025-04-13 05:30 | XMS_ITS ---
[facility] Organization [facility] Address [address] [place] [id number] Care Team Providers Care Plant Technician/Control Room Operator Name Role Phone Karla Mosley Primary Care Provider Elisabeth Mcdaniels [phone] Allergies Allergen (clinical drug ingredient) Drug/Non Drug Allergy documented on EMR Reaction Allergy Type Onset Date Status Substance with sulfonamide structure and antibacterial mechanism of action (substance) Sulfa Antibiotics rash Drug Allergy Active Results Component Value Reference Range Notes X ray : Spine, lumbosacral Reviewed date:04/28/2025 03:40:53 PM Interpretation: Performing Lab: Notes/Report: X ray : Hip, right Reviewed date:04/21/2025 04:13:25 PM Interpretation:Negative Performing Lab: Notes/Report: Negative X ray : Spine, thoracic spin e Reviewed date:04/21/2025 04:12:47 PM Interpretation:Negative Performing Lab: Notes/Report: Negative REASON FOR VISIT 6 month check, refills and Annual Wellness Visit Medications Medication SIG (Take, Route, Frequency, Duration) Notes Start Date End Date Status Aspir-Low 81 MG 1 tab(s) orally once a day Active Meloxicam 7.5 MG 1 tablet Orally Once a day; Duration: 90 days Active Voltaren 1 % as directed Externally four times a day as needed 04/16/2024 Not-Taking hydroCHLOROthiazide 12.5 MG 1 capsule in the morning Orally Once a day; Duration: 90 days 09/16/2023 Active Lila Allergy 180 MG 1 tab(s) orally once a day Active Levothyroxine Sodium 112 MCG 1 tab(s) Or ally Once a day Active Methocarbamol 500 MG 1 tablet Orally three times a day as needed 04/16/2024 Active Medrol 4 MG 1 orally daily; Duration: 6 days Active Problems Problem Type SNOMED Code ICD Code Onset Dates Problem Status W/U Status Risk Notes Problem Morbid obesity (E66.01) Active confirmed Vital Signs Weight 254 lbs 04/13/2025 Blood pressure systolic 128 mm Hg 04/13/20 25 Blood pressure diastolic 72 mm Hg 025 Heart Rate 76 /min 04/13/2025 Height 62.50 in 04/13/2025 BMI 45.71 kg/m2 04/13/2025 Encounters Encounter Location Date Provider Diagnosis [facility] [address] [facility] [address] [place] [address] [place] [id number] 04/13/2025 Elisabeth Mcdaniels Adult general medica l examination Z00.00 ; Acute bilateral low back pain without sciatica M54.50 ; Acute right hip pain M25.551 ; Hypothyroidism E03.9 ; HTN (hypertension) I10 ; Environmental allergies Z91.048 ; Lymphadenopathy R59.1 ; Hyperlipidemia E78.5 ; BMI 45.0-49.9, adult Z68.42 ; Morbid obesity E66.01 and Adult BMI 45.0-49.9 kg/sq m Z68.42 Assessments Encounter Date Diagnosis (ICD Code) Assessment Notes Treatment Notes Treatment Clinical Notes Section Notes 04/13/2025 Adult general medical examination (ICD-10 - Z00.00) Patient instructed to return to office Annually for Annual Wellness Visits to include annual screenings of Pain assessment, Functional Ability assessment, Cognitive Ability assessment, Fall Risk assessment, Depression screening and Bladder control screening. 04/13/2025 Acute bilateral low back pain without sciatica (ICD-10 - M54.50) discussed PT and exercises; past exercises showed DDD 04/13/2025 Acute right hip pain (ICD-10 - M25.551) discussed PT and exercises 04/13/2025 Hypothyroidism (ICD-10 - E03.9) 04/13/2025 HTN (hypertension) (ICD-10 - I10) 04/13/2025 Environmental allergies (ICD-10 - Z91.048) 04/13/2025 Lymphadenopathy (ICD-10 - R59.1) wears lymphaedema pulsating support hose periodically 04/13/2025 Hyperlipidemia (ICD-10 - E78.5) 04/13/2025 BMI 45.0-49.9, adult (ICD-10 - Z68.42) 04/13/2025 Morbid obesity (ICD-10 - E66.01) 04/13/2025 Adult BMI 45.0-49.9 kg/sq m (ICD-10 - Z68.42) Plan Of Treatment Medication Medication Name Sig Start Date Stop Date Notes Meloxicam 7.5 MG 1 tablet Orally Once a day; Duration: 90 days hydroCHLOROthiazide 12.5 MG 1 capsule in the morning Orally Once a day; Duration: 90 days 09/16/2023 Lila Allergy 180 MG 1 tab(s) orally once a day Levothyroxine Sodium 112 MCG 1 tab(s) Orally Once a day Medrol 4 MG 1 orally daily; Dura tion: 6 days Treatment Notes Assessment Notes Adult general medical examination Patient instructed to return to office Annually for Annual Wellness Visits to include annual screenings of Pain assessment, Functional Ability assessment, Cognitive Ability assessment, Fall Risk assessment, Depression screening and Bladder control screening. Acute bilateral low back alexander n without sciatica discussed PT and exercises; past exercises showed DDD Acute right hip pain discussed PT and ex ercises Lymphadenopathy wears lymphaedema pu lsating support hose periodically Next Appt Details Follow Up: 6 Months,and prn, Reason: Progress Notes * Mariola URIBEeDOB:[birth year] (79 yo F)Acc No.[id number]:04/13/2025 Annual Wellness Visit Patient: Mariola COLEMAN Jennifer Provider: PJ Rosario :1945 A ge:79 Y S ex:Female Date:04/13/2025 Address:[facility] [address], [id number] Pcp:Karla Mosley Subjective: * Chief Complaints: * 1 . 6 month check, refills and Annual Wellness Visit. * HPI: H PI: Patient is here today for a 6 month check up with refills?and a Medicare Annual Wellness Visit. 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 Pt sts she would like an xray done on her rt hip and her lower back. Pt sts if she is on uneven grounds she is afraid she is going to fall so she usually has to use a stick or cane to walk. Pt sts she is not fasting. * ROS: R ESPIRATORY: no S hortness of breath. n o C hest pain. n o?Cough. C ARDIOLOGY: Positive for h as regular cardiology visits; last visit last week with no changes. n o C hest pain. n o L eg edema. n o S hortness of breath. M USCULOSKELETAL: Positive for m uscle weakness; using a cane for stability.?Joint stiffness y es. J oint pain y es, R ight hip pain, back pain, bilateral knee pain. n o S ciatica. O steoporosis treatment yes, c alcium. ? O PTHALMOLOGY: Negative for d enies vision issues. * Medical History: H ypothyroidism. * Surgical [...] morning Orally Once a day , Taking Methocarbamol 500 MG Tablet 1 tablet Orally three times a day as needed , Taking Meloxicam 7.5 MG Tablet 1 tablet Orally Once a day , Taking Aspir-Low 81 MG Tablet Delayed Release 1 tab(s) orally once a day , Taking Levothyroxine Sodium 112 MCG Tablet 1 tab(s) Orally Once a day , Not-Taking Voltaren 1 % Gel as directed Externally four times a day as needed , Not-Taking Lila Allergy 180 MG Tablet 1 tab(s) orally once a day , Medication List reviewed and reconciled with the patient * Allergies: S ulfa Antibiotics: rash. Objective: * Vitals: W t: 254, Temp: 98.0, BP: 128/72, HR: 76, Nurse: roger, Ht: 62.50, BMI:45.71. * Examination: G eneral Examination: General Appearance: N AD , appears healthy , alert , well nourished and hydrated. H EENT: s clera and conjunctiva clear, PERRLA, TM's normal, translucent. O ral cavity: m ucosa moist and WNL , no erythema. N akiko: s upple , no lymphadenopathy , no carotid bruits , thyroid normal. H eart: R RR. L ungs: C TAB A&P.?Abdomen: b owel sounds present , soft and nontender. N eurologic Exam: a lert and oriented. E xtremities: l ymphedema bilateral LE. * Physical Examination: G ENERAL: Pain Assessment: P ain level: 4, on a scale of 0-10 (with 10 being extreme pain); pain is in the right hip, bilateral hips and back. F unctional Status Assessment: A ble to perform ADLs , Cognitive Status:excellent. F all Risk Assessment: I ndependant in ambulation, adequate lighting in home. Patient fell before 2023 in the bathroom; does not know why she fell; using a cane for stability. D epression Screening: D enies depressed mood or anxiety. Describes emotional health as:calm and peaceful. B ladder Control Screening: s mall problem with leakage. Assessment: * Assessment: 1. A dult general medical examination - Z00.00 (Primary) 2 . A cute bilateral low back pain without sciatica - M54.50 3 . A cute right hip pain - M25.551? 4. H ypothyroidism - E03.9 5 . H TN (hypertension) - I10 6. E nvironmental allergies - Z91.048 7 . L ymphadenopathy - R59.1 8 . H yperlipidemia - E78.5 9 . B NM 45.0-49.9, adult - Z68.42 1 0. M orbid obesity - E66.01 1 1. A dult BMI 45.0-49.9 kg/sq m - Z68.42 Plan: * Treatment: 2. A cute bilateral low back pain without sciatica Continue Meloxicam Tablet, 7.5 MG, 1 tablet, Orally, Once a day, 90 days, 90, Refills 1. I maging: X ray : Spine, thoracic spine (Performed Date - 04/13/2025) N egative ?Imaging: X ray : Spine, lumbosacral (Performed Date - 04/19/2025)* Isabell Brower 04/13/2025 1 0:31:34 AM >order Elisabeth Cortes 04/28/2025 03:40:23 PM >I have spoken to pt and she wishes to try exercises Notes: discussed PT and exercises; past exercises showed DDD??3.?Acute right hip pain? Start Medrol Tablet Therapy Pack, 4 MG, 1, orally, daily, 6 days, 12, Refills 0.?Imaging: X ray : Hip, right (Performed Date 04/13/2025)?Negative* Isabell Brower 04/13/2025 1 0:31:24 AM >order Elisabeth Cortes 04/21/2025 04:13:02 PM >I spoke with pt and discussed results ?Imaging: X ray : Spine, thoracic spine (Performed Date - 04/13/2025)? Negative* Isabell Brower 04/13/2025 1 0:31:05 AM > order Elisabeth Cortes 04/21/2025 04:08:35 PM >I spoke with pt and discussed results ?Imaging: X ray : Spine, lumbosacral (Performed Date - 04/19/2025)* Isabell Brower 04/13/2025 1 0:31:34 AM >order Elisabeth Cortes 04/28/2025 03:40:23 PM >I have spoken to pt and she wishes to try exercises Notes: discussed PT and exercises??4.?Hypothyroidism? Continue Levothyroxine Sodium Tablet, 112 MCG, 1 tab(s), Orally, Once a day.?? 5.?HTN (hypertension)? Refill hydroCHLOROthiazide Capsule, 12.5 MG, 1 capsule in the morning, Orally, Once a day, 90 days,90 Capsule, Refills 1.??6.?Environmental allergies? Continue Lila Allergy Tablet, 180 MG, 1 tab(s), orally, once a day.?? 7.?Lymphadenopathy? Notes: wears lymphaedema pulsating support hose periodically?? * Procedure Codes: G 0439 ANNUAL WELLNESS VST; PPS SUBSQT VST, G2211 Complex e/m visit add on, 1090F PRES/ABSN URINE INCON ASSESS, 3288F FALL RISK ASSESSMENT DOCD, 1170F FXNL STATUS ASSESSED, 1159F MED LIST DOCD IN RCRD, 1003F LEVEL OF ACTIVITY ASSESS, 1036F TOBACCO NON-USER, 3017F COLORECTAL CA SCREEN DOC REV, 1125F AMNT PAIN NOTED PAIN PRSNT, G8510 NEG SCR Depression PT NOT ELIG F/U/PLN DOC, 3074F SYST BP LT 130 MM HG, 3078F DIAST BP < 80 MM HG * Preventive Medicine: Counseling: E motional health: P atient encouraged to try connecting with family or friends to boost mood. B ladder control: M ethods of controlling or managing leakage of urine discussed. E xercise: P atient advised to start, increase or maintain level of exercise/physical activity. I njury prevention: F all prevention discussed. Discussed need for cane/walker. Potential trip hazards discussed. Immunizations: P neumococcal r ecommended. I nfluenza u p to date. Screening / Special Tests: M ammogram R ecent history: 12/18/2024, negative.?Colonoscopy R ecent history: 08/03/2021, polyps, hemorrhoids, repeat 3 years. Order faxed 02/03/2025; repeat test scheduled for 05/2025. B one mineral Density R ecent history: 11/02/2024, osteopenia bilateral hips. D iabetic Retinal Eye Exam h as annual eye exam and will be scheduling. * Follow Up: 6 Months,and prn * Images: Billing Information: * Visit Code: 94516 Office Visit, Est Pt., Level 4. Modifiers: 25 * Procedure Codes: G0439 ANNUAL WELLNESS VST; PPS SUBSQT VST. G2211 Complex e/m visit add on. 1090F PRES/ABSN URINE INCON ASSESS. 3288F FALL RISK ASSESSMENT DOCD. 1170F FXNL STATUS ASSESSED. 1159F MED LIST DOCD IN RCRD. 1003F LEVEL OF ACTIVITY ASSESS. 1036F TOBACCO NON-USER. 3017F COLORECTAL CA SCREEN DOC REV. 1125F AMNT PAIN NOTED PAIN PRSNT. G8510 NEG SCR Depression PT NOT ELIG F/U/PLN DOC. 3074F SYST BP LT 130 MM HG. 3078F DIAST BP < 80 MM HG. * Electronic signature of Lyndsay Mcdaniels APRN on 06/23/2025 at 07:01 AM EDT Sign off status: Pending * Provider: PJ Rosario Date: 0 04/13/2025 Generated for Trina sims/Hector/Graceitting on: 0 06/23/2025 07:01 AM EDT History and Physical Notes * HPI (History of Present Illness) Category Sub-Category Detail Notes Category Not es HPI Patient is here today for a 6 mo [facility] check up with refills and a Medicare Annual Wellness Visit. 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 Pt sts she would like an xray done on her rt hip and her lower back. Pt sts if she is on uneven grounds she is afraid she is going to fall so she usually has to use a stick or cane to walk. Pt sts she is not fasting Physical Examination Category Sub-Category Detail Notes Section Note s GENERAL Pain Assessment: Pain level: 4, on a scale of 0-10 (with 10 being extreme pain); pain is in the right hip, bilateral hips and back Functional Status Assessment: Able to pe rform ADLs , Cognitive Status:excellent Fall Risk Assessment: Independant in amb ulation, adequate lighting in home. Patient fell before Xm2023 in the bathroom; does not know why she fell; using a cane for stability Depression Screening: Denies depressed m ood or anxiety. Describes emotional health as:calm and peaceful Bladder Control Screening: small problem with leakage Examination Category Sub-Category Detail Notes Category Not es General Examination HEENT: sclera and c onjunctiva clear, PERRLA, TM's normal, translucent Heart: RRR Lungs: CTAB A&P Abdomen: bowel sounds present , soft and nontender Extremities: lymphedema bilateral LE General Appearance: NAD , appears health y , alert , well nourished and hydrated Neurologic Exam: alert and oriented Neck: supple , no lymphade nopathy , no carotid bruits , thyroid normal Oral cavity: mucosa moist and WNL , no erythema
--- NOTE | 2025-06-23 | CA_ITS ---
APPROVED REPORT Exam: Pharmacologic Technologist: Karolina Kenny Ht: 5 ft 1 in Wt: 252 lbs BSA: 2.08 m2 Medical History Medications: aspirin, metoprolol, gary, HCTZ, levothyroxine, meloxicam. Stress Test Details Test: Lexiscan Reason for pharmacologic stress test: physical limitation. HR Resting HR: 76 bpm Max Heart Rate (APMHR): 143.445185 bpm Max HR Achieved: 92 bpm Target HR (85% APMHR): 121.435521 bpm % of APMHR: 64.34 Recovery HR: 78 bpm BP Resting BP: 163.0/81.0 mmHg Max BP: 163.0/81.0 mmHg Recovery BP: 163.0/76.0 mmHg ECG Stress ECG Conclusion Symptoms: chest pressure and dizziness with Lexiscan. Arrhythmias/Ectopy: None. ST-T Changes: unremarkable with Lexiscan. Electronically signed by : Kala Mcleod MD 06/24/2025 00:05:17
--- NOTE | 2025-06-23 07:00 | NM_ITS ---
APPROVED REPORT Exam: Nuclear Stress Test Indication: Chest pain, HTN, Family history Patient Location: Outpatient Stress Tech: Karolina Nevarez [place] Tech:Rita Henson, ARRT, RT (R)(N) Ht: 5 ft 2 in Wt: 250 lbs Bra Size: 44DD HR: 76 bpm BP: 163/81 mmHg BSA: 2.10 m2 TID: 1.31 BMI: 45.7 History: Chest pain, HTN, Family history Procedure: Patient received 0.4 mg of intravenous Lexiscan, resting heart rate 76 bpm, resting blood pressure 163/81 mmHg, with Lexiscan maximum heart rate achieved was 98 bpm which is % of the maximum predicted heart rate and blood pressure was 163/78 mmHg. With Lexiscan, patient denied any complaint of chest pain. Cardiac Stress and Resting SPECT Images: Cardiac Stress and Resting SPECT images were obtained using technetium 99m Myoview 28.4 mCi stress and 10.07 mCi at rest. The patient could not lie on her abdomen. Therefore, prone stress imaging could not be performed. This may affect diagnostic interpretation of the study findings. Resting and stress imaging in supine positions demonstrate no evidence of fixed or reversible perfusion defects. There is increase in transient ischemic dilatation ratio (TID 1.31), which may possibly be suggestive of multivessel disease or balanced ischemia. Gated imaging demonstrates normal global and regional LV systolic function. LVEF is calculated at 71%. Conclusion: No evidence of focal fixed or reversible perfusion defects. There is increase in transient ischemic dilatation ratio (TID 1.31), which may possibly be suggestive of multivessel disease or balanced ischemia. Gated imaging demonstrates normal global and regional LV systolic function. LVEF is calculated at 71%. Electronically signed by : Kala Mcleod MD 06/24/2025 00:03:33
--- OUTSIDE RECORDS SUMMARY | 2025-06-23 07:01 | XMS_ITS | Patient Health Record ---
Author Organization [facility] Address [address] [facility] [address] [place] [address] Care Team Providers Care Member Service Representative Name Role Phone Yari Davis Unavailable [phone] Allergies Allergen (clinical drug ingredient) Drug/Non Drug Allergy documented on EMR Reaction Allergy Type Onset Date Status PENICILLIN V POTASSIUM (PENICILLIN V POTASSIUM TAB Unspecified Drug Allergy 04/30/2012 Active sulfamethoxazole / trimethoprim SULFAMETHOXAZOLE-T RIMETHOPRIM Unspecified Drug Allergy 04/30/2012 Active Reason For Referral No Information Social History Social History Sexual History: Social Info Question Answer Notes Sexual History Had sex in the past 12 months (vaginal, oral, or anal)? Yes Drugs/Alcohol: Social Info Question Answer Notes Drugs Have you used drugs other than those for medical reasons in the past 12 months? No Alcohol Screen Did you have a drink containing alcohol in the past year? Yes Points 0 Interpretation Negative Tobacco Use: Social Info Question Answer Notes Tobacco Use/Smoking Are you a former smoker Tobacco use other than smoking: Are you an other tobac co user? 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
--- OUTSIDE RECORDS SUMMARY | 2025-06-23 07:02 | XMS_ITS | Clinical Summary ---
Author Organization [facility] Address [address] [place] [address] Care Team Providers Care Residence Director Name Role Phone Attila Coreas MD Primary Care Provider Family History Medical History Relation Name Comments Breast cancer Neg Hx Ovarian cancer Neg Hx Social History Tobacco Use Types Packs/Day Years Used Date Smoking Tobacco: Never Assessed Comments No Sex and Gender Information Value Date Recorded Sex Assigned at Not on file Legal Sex Female 9:59 AM EDT Gender Identity Not on file Sexual Orientation Not on file Plan of Treatment Health Maintenance Due Date Last Done Comments DXA SCAN 1945 TDAP/TD VACCINES (1 - Tdap) 1966 COLOGUARD 1992 COLON CANCER SCREENING 5 YEA R SIGMOIDOSCOPY 1992 COLONOSCOPY 1992 [address] CANCER SCREENING 1992 CT COLONOGRAPHY 1992 FECAL OCCULT BLOOD TEST 1992 FIT Testing (1 year) 1992 ANNUAL WELLNESS VISIT 03/29/2017 HEPATITIS C SCREENING 03/29/2017 Pneumococcal Vaccine 50+ (2 of 2 - PCV) 06/18/2018 06/18/2017 RSV Vaccine - Adults (1 - 1- dose 75+ series) 2022 COVID-19 Vaccine ( - 2023-2 5 season) 2024 09/21/2021, 01/10/2021, 12/09/2020 INFLUENZA VACCINE 09/01/2025 10/12/2024, , 09/11/2021, Additional history exists ZOSTER VACCINE Completed 06/10/2024, 03/11/2024 MAMMOGRAM Discontinued 12/18/2024, 03/2024, 12/28/2022, Additional history exists Procedures Procedure Name Priority Date/Time Associated Diagnosis Comments MAMMO SCREENING DIGITAL TOMOSYNTHESIS BILATERAL W CAD Routine 12/18/2024 9:03 AM EST Visit for screening mammogram from Last 3 Months or Most Recently Relevant to Health Maintenance Results * Mammo Screening Digital Tomosynthesis Bilateral With CAD (12/18/2024 9:03 AM EST) Anatomical Region Laterality Modality Breast N/A Mammography 12/19/2024 2:50 PM EST Impressions 12/19/2024 2:50 PM EST Negative bilateral mammogram. RECOMMENDATION: Continue annual screening mammography. BI-RADS CATEGORY 1, NEGATIVE. CAD was utilized. The standard false-negative rate of mammography is between 10% and 25%. Complex patterns or increased breast density will markedly elevate the false-negative rate of mammography. A letter, in lay terminology, with the results of this exam will be mailed to the patient. This report was finalized on 12/19/2024 2:[address] Lilia Sargent MD. Narrative 12/19/2024 2:50 PM EST DIGITAL SCREENING MAMMOGRAM WITH TOMOSYNTHESIS HISTORY: Screening Mammography. Low dose full field digital breast tomosynthesis imaging was performed with 2D and 3D acquisitions consisting of bilateral CC and MLO views. Examination is compared to prior examination dating back to 02/04/2017. Examination is read in conjunction with computer aided detection. FINDINGS: The breast tissue is heterogeneously dense, which may obscure small masses. No suspicious masses, microcalcifications or areas of architectural distortion are present. Attila Coreas MD IMG MAMMOGRAPHY ORDERA BLES Final Result from Last 3 Months or Most Recently Relevant to Health Maintenance Insurance [employer] PPO Care Teams Residence Director Relationship Specialty Start Date End Date Attila Coreas MD [address] [place] [address] [address] [facility] [address] [place] [address] PCP - General 02/02/16
--- OUTSIDE RECORDS SUMMARY | 2025-06-23 07:02 | XMS_ITS | Patient Health Record ---
Author Organization [facility] Address [address] [place] [id number] Care Team Providers Care Patient Portal Representative Name Role Phone Karla Mosley Primary Care Provider [phone] Elisabeth Mcdaniels Unavailable [phone] Bozena Crain Unavailable [phone] Allergies Allergen (clinical drug ingredient) Drug/Non Drug [...] bilateral hips Bone density osteopenia bilateral hips CBC Fingerstick (in house) Reviewed date:12/23/2024 04:14:02 [...] - 38 plat 159 100 - 400 X ray : Spine, lumbosacral Reviewed date:04/28/2025 03:40:53 PM Interpretation: Performing Lab: Notes/Report: X ray : Hip, right Reviewed date:04/21/2025 04:13:25 PM Interpretation:Negative Performing Lab: Notes/Report: Negative X ray : Spine, thoracic spin e Reviewed date:04/21/2025 04:12:47 PM Interpretation:Negative Performing Lab: Notes/Report: Negative H-TSH Reviewed date:10/15/2024 03:13:28 PM Interpretation:Normal Performing Lab: Notes/Report: TSH 0.64 0.465-4.68 uIU/mL H-CBC Reviewed date:10/15/2024 03:11:41 PM Interpretation:Normal Performing Lab: Notes/Report: WBC 8.0 4.8-10.8 K/mm3 RBC 4.64 4.20-5.40 M/mm3 HGB 14.4 12.2-16.2 g/dL HCT 42.1 37.0-47.0 % MCV 90.7 81-99 fl MCH 31.0 27.0-31.2 pg MCHC 34.1 31.8-35.4 g/dL RDW 14.3 11.5-17.5 % PLT 247 142-424 K/mm3 MPV 8.6 7.4-10.4 fl NE% 69.3 37.0-80.0 % LY% 18.2 10-50 % MO% 8.1 1.7-9.3 % EO% 3.0 0.1-12.0 % BA% 1.4 0.1-2.0 % NE# 5.6 1.8-7.8 K/mm3 LY# 1.5 0.7-4.5 K/mm3 MO# 0.7 0.1-1.0 K/mm3 EO# 0.2 0.0-0.4 K/mm3 BA# 0.1 0-0.2 K/mm3 H-Rheumatoid Arthritis Panel Reviewed date:10/15/2024 03:10:34 PM Interpretation:Normal Performing Lab: Notes/Report: URIC 5.7 2.5-6.2 mg/dl H-Lipid Panel Reviewed date:10/15/2024 03:13:05 PM Interpretation:LDL 79.81, hdl 64 Performing Lab: Notes/Report: Patient Fasting? Y TRIG 78 30-150 mg/dl CHOL 169 140-200 mg/dl DLDL 79.81 100-129 mg/dL VLDL 16 0-40 mg/dL HDL 64 40-60 mg/dl CHLHDL 2.6 1-3.5 H-CMP Reviewed date:10/15/2024 03:12:05 PM Interpretation:BS 107, gfr 54 Performing Lab: Notes/Report: NA 139 136-145 mmol/L K 4.0 3.5-5.1 mmoL/L CL 104 98-107 mmol/L CO2 30 22.0-30.0 mmol/L GAP 9.0 5-15 mEq/L BUN 16 7-17 mg/dl CREATT 1.00 0.52-1.04 mg/dl GFRAA 65 >60 ML/MIN EGFR 54 >60 ml/min GLU 107 74-100 mg/dl CA 9.1 8.4-10.2 mg/dl BILIT 0.8 0.2-1.3 mg/dl AST 36 14-36 U/L ALT 33 12-78 U/L TP 7.2 6.3-8.2 g/dl ALB 4.1 3.5-5.0 g/dl GLOB 3.1 1.3-3.2 g/dL AGRATIO 1.3 1.1-1.8 ALP 58 38-126 U/L H-Glycohemoglobin A1C Reviewed date:10/15/2024 03:15:10 PM Interpretation:5.6 Performing Lab: Notes/Report: HGBA1C 5.6 4.0-6.0 % < 6% Non-Diabetic Level < 7% Controlled Diabetic Level > 8% Poorly Controlled Diabetic Level H-Magnesium Reviewed date:10/15/2024 03:12:28 PM Interpretation:2.1 Performing Lab: Notes/Report: MG 2.1 1.6-2.3 mg/dl H-T4 free Reviewed date:10/15/2024 03:13:53 PM Interpretation:Normal Performing Lab: Notes/Report: T4F 1.53 0.78-2.19 ng/dl H-Rheumatoid Arthritis Panel Reviewed date:10/15/2024 03:14:41 PM Interpretation:Normal Performing Lab: Notes/Report: ESR 19 0-30 mm/hr H-Rheumatoid Arthritis Panel Reviewed date:11/09/2024 09:08:17 AM Interpretation:Normal Performing Lab: Notes/Report: RA 10.4 <14.0 IU/mL Performed at: [facility] [employer] [id number] Wet Roaster: Brendan Augustin PhD, Phone: [phone] ANAIFA POSITIVE ANAPAT1 1:80 . ICAP nomenclatu re: AC-1 ANAPAT2 Test not performed . ANAPAT3 Test not performed . ANAPAT4 Test not performed . ANAPAT5 Test not performed . ANAPAT6 Test not performed . ANAPAT7 Test not performed . ANAPAT8 Test not performed . ANAPAT9 Test not performed . NYAGAI91 Test not performed . ANANOTE Comment . Pattern Potential Disease Association Homogeneous Systemic Lupus Erythematosus, Drug Induced Systemic Lupus Erythematosus, Chronic Autoimmune hepatitis, Juvenile Idiopathic Arthritis Speckled Sjogren Syndrome, Systemic Lupus Erythematosus, Subacute Cutaneous Lupus, Lupus, Congenital Heart Block, Mixed Connective Tissue Disease, Scleroderma-diffuse, Scleroderma-Autoimmune Myositis Overlap Syndrome, Systemic Lupus Erythematosus-Scleroderm a-Autoimmune Myositis Overlap Syndrome, Systemic Autoimmune Rheumatic Disease, Undifferentiated Connective Tissue Disease Nucleolar Systemic Sclerosis, Scleroderma-Autoimmune Myositis Overlap Syndrome, Sjogren Syndrome, Raynaud phenomenon, Pulmonary Arterial Hypertension, Systemic Autoimmune Rheumatic Disease, Cancer Centromere Scleroderma-CREST, Limited Cutaneous SSc, Raynaud's Phenomenon, Primary Biliary Cholangitis Nuclear Dot Primary Biliary Cholangitis Nuclear Primary Biliary Cholangitis, Autoimmune Membrane Hepatitis/Liver disease, Systemic Autoimmune Rheumatic Disease, Autoimmune Cytopenias, Linear Scleroderma, Antiphospholipid Syndrome Performed at: [facility] [id number] Wet Roaster: Brendan Augustin PhD, Phone: [phone] colonoscopy Reviewed date:05/31/2025 05:58:34 PM Interpretation:polyps, hemorrhoids, no further testing required Performing Lab: Notes/Report: polyps, hemorrhoids, no further testing required result: polyps, hemorrhoids repeat study: none Reason For Referral No Information Medications Medication SIG (Take, Route, Frequency, Duration) Notes Start Date End Date Status Levothyroxine Sodium 112 MCG 1 tab(s) Or ally Once a day Active Aspir-Low 81 MG 1 tab(s) orally once a day Active Meloxicam 7.5 MG 1 tablet Orally Once a day; Duration: 90 days Active Voltaren 1 % as directed Externally four times a day as needed 04/16/2024 Not-Taking hydroCHLOROthiazide 12.5 MG 1 capsule in the morning Orally Once a day; Duration: 90 days 09/16/2023 Active Methocarbamol 500 MG 1 tablet Orally three times a day as needed 04/16/2024 Active Lila Allergy 180 MG 1 tab(s) orally once a day Active Medrol 4 MG 1 orally daily; Duration: 6 days Active Immunizations Vaccine Route Administration Date Status [...] Intramuscular 03/15/2015 Administered Shingrix Unknown 03/11/2024 Administered Shingrix Unknown 06/10/2024 Administered Tetanus Tdap-Adacel (over 7yrs) IM Intramuscular 04/21/2012 Administered Problems Problem Type SNOMED Code ICD Code Onset Dates Problem Status W/U Status Risk Notes Problem Hypertension (59775405) HTN (hypertension) (I10) Active confirmed Problem Hyperlipidemia (07621367) Hyperlipidemia (E78.5) Active confirmed Problem Hypothyroidism (95852376) Hypothyroidism (acquired) (E03.9) Active confirmed Problem Morbid obesity (487367390) Morbid obesity (E66.01) Active confirmed Problem Osteopenia (047680034) Osteopenia (M85.80) Active confirmed Problem Environmental allergy (425633436) Environmental allergies (Z91.048) Active confirmed Problem Hypothyroidism (01278260) Hypothyroidism (E03.9) Active confirmed Problem Hyperlipidaemia (75735026) Hyperlipidemia, unspecified hyperlipidemia type (E78.5) Active confirmed Problem Mammography abnormal (292924846) Abnormal finding on breast imaging (R92.8) Active confirmed Problem Body mass index 40+ - severely obese (731832520) Adult BMI 45.0-49.9 kg/sq m (Z68.42) Active confirmed Vital Signs Heart Rate 76 /min 04/13/2025 Blood pressure diastolic 72 mm Hg 04/13/2025 Height 62.50 in 04/13/2025 Blood pressure systolic 128 mm Hg 04/13/2025 Weight 254 lbs 04/13/2025 BMI 45.71 kg/m2 04/13/2025 Encounters Encounter Location Date Provider Diagnosis [facility] [address] [id number] 10/12/2024 Elisabeth Mcdaniels Encounter for immunization Z23 ; Adult general medical examination Z00.00 ; Hypothyroidism E03.9 ; HTN (hypertension) I10 ; Screening for diabetes mellitus Z13.1 ; Osteopenia M85.80 ; Environmental allergies Z91.048 ; Hyperlipidemia E78.5 ; Adult BMI 45.0-49.9 kg/sq m Z68.42 and Polyarthralgia M25.50 [facility] [address] [id number] 12/23/2024 Bozena Breann Acute URI J06.9 [facility] [address] [id number] 04/13/2025 Elisabeth Mcdaniels Adult general medica l examination Z00.00 ; Acute bilateral low back pain without sciatica M54.50 ; Acute right hip pain M25.551 ; Hypothyroidism E03.9 ; HTN (hypertension) I10 ; Environmental allergies Z91.048 ; Lymphadenopathy R59.1 ; Hyperlipidemia E78.5 ; BMI 45.0-49.9, adult Z68.42 ; Morbid obesity E66.01 and Adult BMI 45.0-49.9 kg/sq m Z68.42 [facility] [address] [id number] 08/31/2024 Karla BLAIRA[facility] [address] [facility] [address] [place] [id number] 02/03/2025 Karla [place]LAIRA[facility] [address] [facility] [address] [facility] [address] [place] [id number] 03/02/2025 Karla Mosley Assessments Encounter Date Diagnosis (ICD Code) Assessment Notes Treatment Notes Treatment Clinical Notes Section Notes 10/12/2024 Encounter for immunization (ICD-10 - Z23) 12/23/2024 Acute URI (ICD-10 - J06.9) 10/12/2024 Adult general medical examination (ICD-10 - Z00.00) 04/13/2025 Adult general medical examination (ICD-10 - [...] (ICD-10 - M25.551) discussed PT and exercises 10/12/2024 Hypothyroidism (ICD-10 - E03.9) 10/12/2024 HTN (hypertension) (ICD-10 - I10) 04/13/2025 Hypothyroidism (ICD-10 - E03.9) 04/13/2025 HTN (hypertension) (ICD-10 - I10) 10/12/2024 Screening for diabetes mellitus (ICD-10 - Z13.1) 10/12/2024 Osteopenia (ICD-10 - M85.80) suggersted restarting calcium with vit D 04/13/2025 Environmental allergies (ICD-10 - Z91.048) 10/12/2024 Environmental allergies (ICD-10 - Z91.048) 04/13/2025 Lymphadenopathy (ICD-10 - R59.1) wears lymphaedema pulsating support hose periodically 10/12/2024 Hyperlipidemia (ICD-10 - E78.5) 04/13/2025 Hyperlipidemia (ICD-10 - E78.5) 10/12/2024 Adult BMI 45.0-49.9 kg/sq m (ICD-10 - Z68.42) 04/13/2025 BMI 45.0-49.9, adult (ICD-10 - Z68.42) 10/12/2024 Polyarthralgia (ICD-10 - M25.50) 04/13/2025 Morbid obesity (ICD-10 - E66.01) 04/13/2025 Adult BMI 45.0-49.9 kg/sq m (ICD-10 - Z68.42) 10/12/2024 Other will have labs done fasting this week at [facility] Plan Of Treatment Pending Test Test Name Order Date LC-Troponin I 01/01/2022 Insurance Providers Payer Name Payer Address Payer Phone Subscriber Number Group Number Insured Name Patient Relationship to Insured Coverage Start Date Coverage End Date [employer] (MEDICAR E) [address] [address] [place] [address] [id number] Mariola URIBE Self - patient is the insured Medications Administered Medication Instructions Date of Administration Dosage Notes Depo- Medrol 40 mg/ml 04/08/2023 1 mL Dexamethasone 03/11/2007 1 mL Dexamethasone 03/07/2020 1 mL Dexamethasone 02/18/2023 1 mL Dexamethasone 12/23/2023 1 mL Medical (General) History Medical History History ICD Code Hypothyroidism Surgical History Surgery Date(Month/Year) c- section X2 Precancerous lump removal of right breas t 2005 US guided breast biopsy left breast-mesfin gn. In-Office 03/22/17 left cataract surgery 02/20/18 right cataract surgery 04/10/18 Hospitalization History Reason Date(Month/Year) see above
[2025-06-23] MEDS: ISOTOPE MYOVIEW (PER STUDY) 1 DOSE IV (09:17)
[2025-06-23] MEDS: SODIUM CHLORIDE 0.9% 10ML SYR (RAD ONLY) 10 ML IV ×2 (09:17)
--- NOTE | 2025-06-23 09:30 | CA_ITS ---
APPROVED REPORT EXAM: Comprehensive 2D, Doppler, and color-flow Echocardiogram Profile Saw Operator: Laurie Lan RVT Ht: 5 ft 2 in Wt: 251lbs BSA: 2.11 BP: 132/77 mmHg Indications: ANGINA 2D Dimensions LA Volume 38.80 mL LA Volume Index 18.39 mL/m2 (M/F) 16-34 M-Mode Dimensions RVDd 2.37 cm (0.9-2.6) LA Diam 3.43 cm (1.9-4.0) LVDd 4.53 cm (3.5-5.7) LVDs 3.22 cm (3.5-5.7) IVSd 0.38 cm (0.6-1.1) PWd 0.59 cm (0.6-1.1) EF (Teich) 55.70% FS 28.90% EDV (Teich) 93.90 mL ESV (Teich) 41.60 mL LV Diastology E Decel Time 150 (160-240 msec) E/A Ratio 0.7 Aortic Valve KATY Index 1.46 cm2/m2 AoV Peak Alessandro. 128.0 (50-130 cm/s) AI PHT 889.00 ms AO Peak GR. 6.60 mmHg AO Mean GR. 3.90 (<5 mmHg) AO VTI 25.3 (18-25 cm) KATY (VTI) 3.16 (2.5-4.5 cm2) Mitral Valve MV E Max Alessandro. 65.0 (40-130 cm/s) MV A Velocity 88.0 (40-130 cm/s) E/A Ratio 0.73 MV PHT 44.0 ms Pulmonary Valve PV Peak Velocity 90.0 (50-150 cm/s) Left Ventricle The left ventricle is normal size. The left ventricular systolic function is normal. The left ventricular ejection fraction is within the normal range. There is normal left ventricular wall thickness. There is normal LV segmental wall motion. The left ventricular diastolic function is normal. LVEF is 60-65%. Right Ventricle The right ventricle is normal size. The right ventricular systolic function is normal. Atria The left atrium size is normal. The right atrium size is normal. There is no Doppler evidence of interatrial shunt. Aortic Valve The aortic valve opens well. There is no aortic valvular stenosis. Mild aortic regurgitation. Mitral Valve The mitral valve is normal in structure. No evidence of mitral valve stenosis. Trace mitral regurgitation. Tricuspid Valve Tricuspid valve is grossly normal in structure and function. Trace tricuspid regurgitation. There is insufficient TR jet to estimate RVSP. Pulmonic Valve The pulmonary valve is normal in structure. Trace pulmonic regurgitation. Great Vessels The aortic root is normal in size. IVC is normal in size and collapses >50% with inspiration. Pericardium There is no pericardial effusion. Other Information Study Quality: Fair Conclusion Normal biventricular systolic function. Mild AI, mild PI. Electronically signed by : Kala Mcleod MD 06/27/2025 11:30:38
== END 2025-06-23 23:59 | disposition home or self-care (01) ==
LOC: RAD 06:59
PROVIDERS: PCP Family Medicine; Visit Provider Physician Assistant
DX: I08.8 Other rheumatic multiple valve diseases (principal); R43.9 Unspecified disturbances of smell and taste; I10 Essential (primary) hypertension; I89.0 Lymphedema, not elsewhere classified; I20.89 Other forms of angina pectoris
CPT/HCPCS: 78452; 93016; 93017; 93018; 93306; A9502; J2785

== ENCOUNTER 2025-07-21 07:44 | Day surgery (SDC) | payer MEDICARE, SELFPAY ==
[2025-07-21] VITALS (10 sets, daily range): BP systolic 131–151; BP diastolic 68–91; PULSE 57–78; RESP 16–20; O2SAT 93–98; BMI 46.3
--- NOTE | 2025-07-21 07:08 | IR_ITS ---
APPROVED REPORT Patient Location: Outpatient Scientologist: KIKE Talley RT (R) PROCEDURES Left heart catheterization Left ventriculogram Selective coronary angiogram INDICATION Abnormal Myoview, Angina pectoris Informed consent was obtained prior to the procedure. COMPLICATIONS NONE Estimated Blood Loss: LESS THAN 10 ML TECHNIQUE One percent lidocaine used to anesthetize the right anterior aspect of the wrist. The right radial artery was accessed via the Seldinger technique. A 6 Malay sheath was placed in the right radial artery. 2.5 mg of Verapamil, 800 mcg of nitroglycerin, 1mg Lidocaine and 5000 U Heparin were given through the arterial sheath. The JL3 catheter was also used to perform left heart catheterization, left ventriculogram and selective coronary angiogram. At the end of the procedure the sheath was removed good hemostasis was achieved using Traclet band, patient was transferred to the postop holding area in stable condition. ANGIOGRAPHIC RESULTS The left main artery Normal The left anterior descending artery Normal The circumflex artery Normal The right coronary artery Dominant normal The RIZO ventriculogram reveals Normal 65% The left ventricular end-diastolic pressure 20 mmHg IMPRESSION Normal coronary arteries Normal ejection fraction Mildly elevated LVEDP consistent with diastolic dysfunction PLAN 1. Medical management for diastolic dysfunction Electronically signed by : Carl Yeboah MD 07/21/2025 10:22:53
[2025-07-21 08:18] LABS: Hematocrit 43.1 % (37.0-47.0); Hemoglobin 14.2 g/dL (12.2-16.2); Immature Granulocytes % 0.5 %; Mean Corpuscular HGB Conc 32.9 g/dL (31.8-35.4); Mean Corpuscular Hemoglobin 30.1 pg (27.0-31.2); Mean Corpuscular Volume 91.5 fl (81-99); Nucleated Red Blood Cells % 0 %; Platelet Count 254 K/mm3 (142-424); Red Blood Count 4.71 M/mm3 (4.20-5.40); Red Cell Distribution Width-SD 45.1 fL; White Blood Count 8.9 K/mm3 (4.8-10.8)
[2025-07-21 08:27] LABS: Chloride 105 mmol/L (98-107); Potassium 3.7 mmoL/L (3.5-5.1); Sodium 141 mmol/L (136-145)
[2025-07-21 08:30] LABS: Anion Gap 11.7 mEq/L (5-15); Blood Urea Nitrogen 20 mg/dl (7-17); Carbon Dioxide 28 mmol/L (22.0-30.0); Creatinine Clearance Estimated 37 mL/min (50-200); Creatinine,Serum 1.00 mg/dl (0.52-1.04); Estimated Glomerular Filt Rate 54 ml/min (>60); GFR (African American) 65 ML/MIN (>60)
[2025-07-21 08:31] LABS: Calcium 9.4 mg/dl (8.4-10.2); Glucose 108 mg/dl (74-100)
[2025-07-21] MEDS: HEPARIN 1,000 UNITS/ML 10ML VIAL (CATH LAB) 5000 UNIT IV (09:46)
[2025-07-21] MEDS: NITROGLYCERIN 800MCG/8ML SYR (CATH LAB) 800 MCG IA (09:46)
[2025-07-21] MEDS: HEPARIN 1,000 UNITS/500ML NS (CATH LAB) 3000 UNIT IV (09:46)
[2025-07-21] MEDS: LIDOCAINE 1% 10ML MDV 10 ML IJ (09:46)
[2025-07-21] MEDS: VERAPAMIL 2.5MG/ML 2ML VIAL 2.5 MG IV (09:47)
[2025-07-21] MEDS: 0.9 % SODIUM CHLORIDE 500 ML 25 ML IV (09:47)
[2025-07-21] MEDS: MIDAZOLAM HCL 1MG/ML 5ML VIAL 1 MG IV (10:19)
[2025-07-21] MEDS: FENTANYL 100MCG/2ML VIAL 50 MCG IV (10:19)
--- NOTE | 2025-07-21 12:02 | SUR.PHASEII ---
lunch tray ordered. pt updated on poc. family at bedside.
[2025-07-21] MEDS: IOPAMIDOL-370 (76%);100ML BOTTLE 50 ML IV (14:05)
== END 2025-07-21 12:57 | disposition home or self-care (01) ==
LOC: CATHLAB 07:45
PROVIDERS: PCP Family Medicine; Visit Provider Internal Medicine
PROC: 4A023N7 Measurement of Cardiac Sampling and Pressure, Left Heart, Percutaneous Approach (ICD-10-PCS; CPT 93452; principal; 2025-07-21 07:15)
DX: R94.39 Abnormal result of other cardiovascular function study (principal); I20.9 Angina pectoris, unspecified; I10 Essential (primary) hypertension; I35.1 Nonrheumatic aortic (valve) insufficiency; I89.0 Lymphedema, not elsewhere classified; Z79.82 Long term (current) use of aspirin; Z79.890 Hormone replacement therapy; Z79.899 Other long term (current) drug therapy; Z88.2 Allergy status to sulfonamides; Z82.49 Family history of ischemic heart disease and other diseases of the circulatory system
CPT/HCPCS: 80048; 85025; 93458; 99152; C1725; C1760; C1769; J1200; J1644; J3010; J7040; Q9967

== ENCOUNTER 2025-11-04 09:02 | Outpatient (CLI) | payer MEDICARE, SELFPAY ==
--- NOTE | 2025-11-04 09:05 | XR_ITS ---
FINAL REPORT TECHNIQUE: Left foot four views CLINICAL HISTORY: left foot pain COMPARISON: 08/31/2024 FINDINGS: LEFT FOOT 4 views of the left foot demonstrate no acute fracture or dislocation. A moderate-sized plantar calcaneal spur is present. There are hypertrophic changes of the lateral base of the fifth metatarsal. The visualized joint spaces are normally aligned. The soft tissues are unremarkable. IMPRESSION: Degenerative changes as described, with no acute bony abnormality. Reviewed, Interpreted and Dictated by Power Doe MD Transcribed by Amy Echeverria Authenticated and [facility]
--- OUTSIDE RECORDS SUMMARY | 2025-11-04 09:14 | XMS_ITS | Clinical Summary ---
[facility] Address [address] [place] [address] Care Team Providers Care Cyber Workforce Developer And Manager Name Role Phone Attila Coreas MD Primary [...] 1992 FIT Testing (1 year) 1992 ANNUAL PHYSICAL 03/29/2017 HEPATITIS C SCREENING 03/29/2017 Pneumococcal Vaccine 50+ (2 of 2 - PCV) 06/18/2018 06/18/2017 RSV Vaccine - Adults (1 - 1- dose 75+ series) 2022 INFLUENZA VACCINE 07/02/2025 10/12/2024, , 09/11/2021, Additional history exists COVID-19 Vaccine ( - 2024-2 6 season) 2025 09/21/2021, 01/10/2021, 12/09/2020 ZOSTER VACCINE Completed 06/10/2024, 03/11/2024 MAMMOGRAM Discontinued [...] Insurance [employer] PPO Care Teams Cyber Workforce Developer And Manager Relationship Specialty Start Date End Date Attila oCreas MD [address] [place] [address] [address] [place] [address] PCP - General 02/02/16
== END 2025-11-04 23:59 | disposition home or self-care (01) ==
LOC: RAD 09:03
PROVIDERS: PCP Family Medicine; Visit Provider Physician Assistant
DX: M19.072 Primary osteoarthritis, left ankle and foot (principal)
CPT/HCPCS: 73630

== ENCOUNTER 2025-11-29 10:00 | Outpatient (RCR) | payer MEDICARE, SELFPAY ==
--- NOTE | 2025-11-18 15:50 | HMH.PTOPEV ---
PT Evaluation Rehab PT Outpatient Evaluation Start: 11/18/25 14:58 Freq: Status: Active Protocol: Document 11/18/25 14:58 ANNAMARIA (Rec: 11/18/25 15:49 ANNAMARIA [id number]) E-signed By Rita Shah, PT Outpatient Therapy Subjective History Subjective History This is an initial PT eval for 79 y/o female who presents with referral for left foot pain with diagnosis of tendonitis of left foot . Pt reports this pain began insidiously a couple of weeks ago. Pt reports the top of her foot swells up and is painful to move and touch. Pt denies any acute injury/accident that would lead to her pain. Pt reports she has had this before but it went away with prescribed medication . Pt reports using Voltaren gel with min-mod relief. Pt reports she was told it could be related to lymphedema or tendonitis. Pt reports her pain has gotten ~70% better since it began. Pt denies any LE/foot numbness or tingling. PMH: lymphedema Imaging: Foot x-ray: Degenerative changes as described , with no acute bony abnormality. New diagnosis of No cancer in past 12 months? Chief Complaint Pain,Swelling Symptom Type Ache,Dull Symptoms Relieved By Rest/Positioning,Ice,Prescription Meds Symptoms Aggravated Standing,Physical Activity,Walking By Prior Functional None Limitations Current Functional Standing,Recreation Activity,Walking,Stairs Limitations Symptom Description Constant but Variable Level of pain today 4 (0-10) Pain scale - at its 4 best (0-10) Pain scale - at its 8 worst (0-10) Ankle/Foot Eval Gait Observation General Gait Pattern Antalgic Gait Observation Assistive Device Ambulation Assistive None Device Palpation Tenderness left Ankle/Foot Palpation Tenderness Findings Ankle/Foot Palpation Dorsal foot over cuboid 2/4 TTP palpable knot. Overall Comment ATF TTP negative PTF TTP negative CF TTP negative Deltoid ligament TTP negative ROM Ankle/Foot WNL, non-painful Dorsiflexion w/Knee Flexed Active Range of Motion (degrees) Ankle/Foot Plantar WNL, painful Flexion Active Range of Motion (degrees) Ankle/Foot Eversion WNL, non-painful Active Range of Motion (degrees) Ankle/Foot Inversion WNL, non-painful Active Range of Motion (degrees) MMT Ankle Dorsiflexion 3+ Fair+ Strength Grade Ankle Plantarflexion 4 Good Strength Grade Foot Eversion 4+ Good+ Strength Grade Foot Inversion 4+ Good+ Strength Grade Special Tests Ankle Anterior Negative Left Drawer Test Ankle Eversion Test Negative Left Talar Tilt Test Negative Left Ankle Inversion ( Negative Left supination) Test Ankle Posterior Negative Left Drawer Test Foot Compression Negative Left Test Lower Extremity Functional Index Activities Today, do you or would you have any difficulty at all with: a.Any of your usual Moderate difficulty work, housework or school activities b. Your usual Moderate difficulty hobbies, recreational or sporting activities c. Getting into or Moderate difficulty out of the bath d. Walking between Moderate difficulty rooms e. Putting on your Moderate difficulty shoes or socks f. Squatting A little bit of difficulty g. Lifting an object Moderate difficulty , like a bag of groceries from the floor h. Performing light Moderate difficulty activities around your home i. Performing heavy A little bit of difficulty activities around your home j. Getting into or Extreme difficulty or unable to perform activity out of a car k. Walking 2 blocks Extreme difficulty or unable to perform activity l. Walking a mile Extreme difficulty or unable to perform activity m. Going up or down Quite a bit of difficulty 10 stairs (about 1 flight of stairs) n. Standing for 1 Quite a bit of difficulty hour o. Sitting for 1 Quite a bit of difficulty hour p. Running on even Quite a bit of difficulty ground q. Running on uneven Quite a bit of difficulty ground r. Making sharp Quite a bit of difficulty turns while running fast s. Hopping Quite a bit of difficulty t. Rolling over in Quite a bit of difficulty bed LEFI Score Lower Extremity 28 Functional Index Score Outpatient Therapy Assessment Impairments Problems/ Palpation Tenderness,Impaired Strength,Impaired Impairmments Transfers,Impaired Gait Pattern,Impaired Walking, Impaired Recreational Activities,Subjective C/O Pain Prognosis Rehab Potential Good Comment Pt presents with dorsal left foot pain that was produced with resisted dorsiflexion and palpation over cuboid. Pt presents with a tender and visible lump/knot on the dorsal of her foot. Some non-pitting edema and varicose veins noted around this area. Pt would benefit from skilled PT to address deficits and decrease pain. PT provided pt with HEP (4 way ankle GreenTB, foot ABC , calf raises). Pt demo'd good understanding to HEP tasks. Clinical Impression Consistent with Yes Diagnosis PT Patient Goals PT Patient Goals PT Short Term In 4 weeks, pt will: Patient Goals 1) Verbalize compliance with home exercise program to improve self-maintenance of symptoms. 2) Verbalize 48-hour pain average (worst/best/current) of 3-4/10 3) Improve ankle strength by 1/5 MMT grade globally to improve daily functioning. 4) Tolerate one 10 minute moderate intensity endurance task (ex: bike) 5) Improve LEFS to 35/80 to improve LE functioning. 6) Verbalize feeling at least 45% improved in symptoms since initial PT evaluation. PT Principal Systems Architect Patient In 8 weeks, pt will: Goals 1) Verbalize adherence with home exercise program to maximize self-maintenance of symptoms upon d/c from PT POC. 2) Verbalize 48-hour pain average (worst/best/current) of 0-1/10 3) Improve ankle strength to 5/5 MMT grade globally to improve daily functioning. 4) Improve LEFS to 45/80 to improve LE functioning. 5) Improve Ankle PF to WNL and pain-free to improve functional ROM for daily tasks like dressing, reaching, picking up objects, and driving. 6) Verbalize feeling at least 90% improved in symptoms since initial PT evaluation. Outpatient Therapy Plan of Care Treatment Plan May Include Therapeutic Exercise Yes Including Home Exercise Program Manual Therapy Yes Techniques Neuromuscular Re- Yes education Therapeutic Yes Activities to Return to Previous Functional/Work Level Gait Training Yes ADL/Self Care Yes Education Dry Needling Yes Thermal Modalities Yes Electrical Yes Stimulation Ultrasound/ Yes Phonophoresis Iontophoresis Yes Parrafin Yes Orthotics/Bracing/ Yes Splinting Vasopneumatic Yes Compression Pump Massage Yes Manual Lymphatic Yes Drainage Eval/Re-Eval Yes Frequency Times per week 1-2x Duration Number of Weeks 6-8 weeks Addendums This patient is a No candidate for social or vocational rehab ? Patient/Guardian Yes verbally acknowledges understanding of treatment program and consents to further treatment? Patient/Guardian Yes verbally acknowledges understanding of diagnosis, prognosis and goals for treatment? Eval Complexity PT Charges 75013 - Moderate Complexity Shoulder/Elbow Eval Shoulder Objective Measurements Elbow Objective Measurements PHYSICIAN CERTIFICATION: I certify the specified therapy services for Mariola Gutierrez are required, authorized, and reviewed every 30 days.
== END 2025-11-29 23:59 | disposition home or self-care (01) ==
LOC: PT 10:00
PROVIDERS: PCP Family Medicine; Visit Provider Physician Assistant
DX: M77.52 Other enthesopathy of left foot and ankle (principal)
CPT/HCPCS: 97110; 97162